=== PATIENT | male | born 1965 | race Caucasian/White ===

== ENCOUNTER 2016-05-23 23:32 | Inpatient (IN) | payer SELFPAY ==
[~2016-05-23] VITALS: Ht 177.8 cm; Wt 79.6 kg
[2016-05-23 23:25] VITALS: O2SAT 99
[~2016-05-23 23:32] MED LIST: ALBU6.7H INH; HYDR12.56 PO; KCL10C PO; LISI-363 PO
[2016-05-23] MEDS ORDERED: SODIUM CHLOR 0.9% 1000 ML INJ 1,000 ML IV SCH (23:34)
[2016-05-23 23:35] VITALS: BP 176/86; PULSE 59; RESP 14; TEMP 98.6; O2SAT 98
[2016-05-23] MEDS ORDERED: SODIUM CHLORIDE 0.9% FLUSH 5 ML FLUSH IVF PRN (23:45)
[2016-05-23] MEDS ORDERED: PROPOFOL 1000 MG/100 ML INJ 100 ML IV SCH (23:45)
[2016-05-23 23:57] VITALS: BP 178/84; PULSE 70; RESP 14; O2SAT 100
[2016-05-24] VITALS (31 sets, daily range): BP systolic 113–229; BP diastolic 56–105; PULSE 56–115; RESP 14–28; TEMP 96.2–106.8; O2SAT 94–100
[2016-05-24 00:03] LABS: BLOOD, URINE SMALL (NEG); GLUCOSE,URINE NEG (NEG); HYALINE CAST, URINE 1 /lpf (RARE); KETONE, URINE NEG (NEG); NITRITE,URINE NEG (NEG); PH, URINE 5.5 (5.0-8.5); SQUAMOUS EPITHELIAL CELL URINE <1 /hpf (0-5); URINE COLOR YELLOW (YELLW/STRAW)
[2016-05-24 00:04] LABS: COMMENT (UR) CATH-CULT NOT IND; CULTURE IF INDICATED CATH CULTURE NOT IND
[2016-05-24 00:07] LABS: AUTOMATED NEUTROPHIL # 5.4 TH/MM3 (1.8-7.7); BASOPHIL # 0.1 TH/MM3 (0-0.2); BASOPHIL % 0.6 % (0.0-2.0); EOSINOPHIL # 0.3 TH/MM3 (0-0.4); EOSINOPHIL % 3.3 % (0.0-4.0); HEMATOCRIT 40.9 % (39.0-51.0); LYMPH % 37.5 % (9.0-44.0); LYMPHOCYTE # 3.9 TH/MM3 (1.0-4.8); MEAN CELL VOLUME 88.4 FL (80.0-100.0); MEAN CORPUSCULAR HEMOGLOBIN 27.8 PG (27.0-34.0); MEAN CORPUSCULAR HGB CONC 31.5 % (32.0-36.0); NEUT % 52.6 % (16.0-70.0); PLATELET COUNT 216 TH/MM3 (150-450); RED BLOOD COUNT 4.63 MIL/MM3 (4.50-5.90); RED CELL DISTRIBUTION WIDTH 21.8 % (11.6-17.2); WHITE BLOOD COUNT 10.3 TH/MM3 (4.0-11.0)
[2016-05-24 00:08] LABS: AMPHETAMINE, URINE NEG (NEG); BARBITURATES, URINE NEG (NEG); COCAINE, URINE NEG (NEG)
[2016-05-24 00:11] LABS: HEMO FLAGS AUTO DIFF
--- NOTE | 2016-05-24 00:12 | PD ---
HPI Chief Complaint: OD/ Ingestion Time Seen by Provider: 23:34 Travel History International Travel<30 days: No Contact w/Intl Traveler<30days: No Traveled to known affect area: No History of Present Illness HPI 51-year-old male presents by ambulance after being found unresponsive. He was given 0.8 milligrams of Narcan without response so he was intubated by the ambulance team with 4 mg of Ativan and 40 mg of etomidate. He was intubated successfully on the second attempt. He was home babysitting a 2-year-old in no significant additional history is available other than he did have paraphernalia for pot on scene. PFS Past Medical History Medical History: Unable to Obtain Diverticulitis: Yes Hypertension: Yes ?: Unknown Past Surgical History Surgical History: Unable to Obtain Social History Narrative Social History By records Alcohol Use: Yes (2 beer/night) Tobacco Use: Yes Substance Use: Yes (marijuana) Allergies-Medications (Allergen,Severity, Reaction): Coded Allergies: No Known Allergies (Unverified , 05/23/16) Reported Meds & Prescriptions Reported Meds & Active Scripts Active Proventil Hfa (Albuterol Sulfate) 6.7 Gm Aero 2 Puff INH Q4HR NEEDED FOR SHORTNESS OF BREATH KCl 10 Meq Cap (Potassium Chloride) 10 Meq Capcr 10 Meq PO DAILY Hctz (Hydrochlorothiazide) 12.5 Mg Cap 12.5 Mg PO DAILY Lisinopril 20 mg (Lisinopril) 20 Mg Tab 1 Tab PO DAILY Review of Systems ROS Limitations: Clinical Condition Physical Exam Narrative General: Intubated, focused exam performed Skin: Warm and dry Eyes: Pupils pinpoint Neck: No JVD Cardiovascular: Regular rate and rhythm Respiratory:clear to auscultation bilaterally on vent Abdomen: Soft, nondistended Extremities: No edema noted Neuro: Unresponsive Data Data Last Documented VS Vital Signs Date Time Temp Pulse Resp B/P Pulse Ox O2 Delivery O2 Flow Rate FiO2 05/24/16 00:48 63 14 176/86 100 70 05/23/16 23:57 Ventilator 05/23/16 23:35 98.6 Orders Electrocardiogram (05/23/16 23:34) Alcohol (Ethanol) (05/23/16 23:34) Ammonia (05/23/16 23:34) Complete Blood Count With Diff (05/23/16 23:34) Comprehensive Metabolic Panel (05/23/16 23:34) Creatine Kinase (Cpk) (05/23/16 23:34) Drug Screen, Random Urine (05/23/16 23:34) Prothrombin Time / Inr (Pt) (05/23/16 23:34) Act Partial Throm Time (Ptt) (05/23/16 23:34) Salicylates (Aspirin) (05/23/16 23:34) Troponin I (05/23/16 23:34) Tylenol (Acetaminophen) (05/23/16 23:34) Lactic Acid Sepsis Protocol (05/23/16 23:34) Urinalysis - C+S If Indicated (05/23/16 23:34) Arterial Blood Gas (Abg) (05/23/16 23:34) Blood Culture (05/23/16 23:34) Chest, Single Ap (05/23/16 23:34) Ct Brain W/O Iv Contrast(Rout) (05/23/16 23:34) Blood Glucose (05/23/16 23:34) Ecg Monitoring (05/23/16 23:34) Iv Access Insert/Monitor (05/23/16 23:34) Oximetry (05/23/16 23:34) Urinary Catheter Insert/Apply (05/23/16 23:34) Sodium Chloride 0.9% Flush (Ns Flush) (05/23/16 23:45) Sodium Chlor 0.9% 1000 Ml Inj (Ns 1000 M (05/23/16 23:34) Propofol 1000 Mg/100 Ml Inj (Diprivan 10 (05/23/16 23:45) ^ Infusion (05/23/16 23:34) RASS (05/23/16 23:34) Neurological Rass Scale HARSH.Q2H (05/23/16 23:34) B-Type Natriuretic Peptide (05/23/16 23:38) Sodium Bicarbonate 8.4% Inj (Sodium Bica (05/24/16 00:30) Cta Brain W Iv Contrast W 3d (05/24/16 ) Cefepime Inj (Maxipime Inj) (05/24/16 00:38) Azithromycin Inj (Zithromax Inj) (05/24/16 00:38) Consult Neurosurgery (05/24/16 ) Sodium Chlor 0.9% 1000 Ml Inj (Ns 1000 M (05/24/16 00:45) Nicardipine Inj (Cardene Inj) (05/24/16 00:45) Admit Order (Ed Use Only) (05/24/16 00:57) Labs Laboratory Tests Test 05/23/16 23:39 White Blood Count 10.3 TH/MM3 Red Blood Count 4.63 MIL/MM3 Hemoglobin 12.9 GM/DL Hematocrit 40.9 % Mean Corpuscular Volume 88.4 FL Mean Corpuscular Hemoglobin 27.8 PG Mean Corpuscular Hemoglobin 31.5 % Concent Red Cell Distribution Width 21.8 % Platelet Count 216 TH/MM3 Mean Platelet Volume 9.7 FL Neutrophils (%) (Auto) 52.6 % Lymphocytes (%) (Auto) 37.5 % Monocytes (%) (Auto) 6.0 % Eosinophils (%) (Auto) 3.3 % Basophils (%) (Auto) 0.6 % Neutrophils # (Auto) 5.4 TH/MM3 Lymphocytes # (Auto) 3.9 TH/MM3 Monocytes # (Auto) 0.6 TH/MM3 Eosinophils # (Auto) 0.3 TH/MM3 Basophils # (Auto) 0.1 TH/MM3 CBC Comment AUTO DIFF Differential Comment AUTO DIFF CONFIRMED Platelet Estimate NORMAL Platelet Morphology Comment NORMAL Crenated Cell Acanthocytes OCC Keratocytes OCC Prothrombin Time 10.2 SEC Prothromb Time International 0.9 RATIO Ratio Activated Partial 26.1 SEC Thromboplast Time Urine Color YELLOW Urine Turbidity CLEAR Urine pH 5.5 Urine Specific [place] 1.020 Urine Protein 30 mg/dL Urine Glucose (UA) NEG mg/dL Urine Ketones NEG mg/dL Urine Occult Blood SMALL Urine Nitrite NEG Urine Bilirubin NEG Urine Urobilinogen LESS THAN 2.0 MG/DL Urine Leukocyte Esterase NEG Urine RBC 2 /hpf Urine WBC 1 /hpf Urine Squamous Epithelial <1 /hpf Cells Urine Hyaline Casts 1 /lpf Microscopic Urinalysis Comment CATH-CULT NOT IND Sodium Level 142 MEQ/L Potassium Level 4.5 MEQ/L Chloride Level 108 MEQ/L Carbon Dioxide Level 16.2 MEQ/L Anion Gap 18 MEQ/L Blood Urea Nitrogen 28 MG/DL Creatinine 1.73 MG/DL Estimat Glomerular Filtration 42 ML/MIN Rate Random Glucose 243 MG/DL Lactic Acid Level 10.5 mmol/L Calcium Level 8.4 MG/DL Total Bilirubin 0.2 MG/DL Aspartate Amino Transf 33 U/L (AST/SGOT) Alanine Aminotransferase 27 U/L (ALT/SGPT) Alkaline Phosphatase 111 U/L Ammonia 102 MCMOL/L Total Creatine Kinase 102 U/L Troponin I 0.08 NG/ML B-Type Natriuretic Peptide 487 PG/ML Total Protein 7.3 GM/DL Albumin 3.4 GM/DL Salicylates Level 3.9 MG/DL Urine Opiates Screen NEG Acetaminophen Level LESS THAN 2.0 MCG/ML Urine Barbiturates Screen NEG Urine Amphetamines Screen NEG Urine Benzodiazepines Screen NEG Urine Cocaine Screen NEG Urine Cannabinoids Screen POS Ethyl Alcohol Level LESS THAN 3 MG/DL MDM Medical Decision Making Medical Screen Exam Complete: Yes Emergency Medical Condition: Yes Medical Record Reviewed: Yes (prior visit noted and past history reviewed) Interpretation(s) EKG is sinus bradycardia at 50 with peak T waves V3 through V5 without STEMI criteria CBC & BMP Diagram 05/23/16 23:39 CT head discussed with radiologist large intraparenchymal bleed within brain stem of ruiz Differential Diagnosis Overdose, intracranial, sepsis, cardiac, renal failure, electrolyte abnormality Narrative Course Will check blood work, imaging and place on propofol for sedation and reevaluate ED workup shows large intracranial bleed, Cardene drip started for blood pressure control. Patient discuss with neurosurgery and will be admitted. There is no family at bedside to update and patient remains in critical condition. Critical Care Narrative Aggregate critical care time was 45 minutes. Time to perform other separately billable procedures was not included in the critical care time. My time did not include minutes spent treating any other patients simultaneously or on activities that did not directly contribute to the patient's treatment. The services I provided to this patient were to treat and/or prevent clinically significant deterioration that could result in: respiratory failure, I provided critical care services requiring my management, as noted below: Chart data review, documentation time, medication orders and management, vital sign assessments/reviewing monitor data, ordering and reviewing lab tests, ordering and interpreting/reviewing x-rays and diagnostic studies, care of the patient and discussion of the patient with the admitting physicians. Physician Communication Physician Communication Dr. Potter states not surgical dr sneed agrees to admission Diagnosis Primary Impression: Intraparenchymal hematoma of brain Qualified Code: S06.369A - Intraparenchymal hematoma of brain, unspecified laterality, with loss of consciousness of unspecified duration, initial encounter Additional Impressions: Hypertensive emergency Respiratory failure Admitting Information Admitting Physician Requests: Admit Nena Mayorga MD May 24, 2016 00:12
[2016-05-24 00:23] LABS: ALT (GPT) 27 U/L (12-78); ANION GAP 18 MEQ/L (5-15); AST (GOT) 33 U/L (15-37); BICARBONATE 16.2 MEQ/L (21.0-32.0); BLOOD UREA NITROGEN 28 MG/DL (7-18); CHLORIDE 108 MEQ/L (98-107); GLOMERULAR FILTRATION RATE 42 ML/MIN (>89); SODIUM (NA) 142 MEQ/L (136-145)
[2016-05-24 00:24] LABS: ALKALINE PHOSPHATASE 111 U/L (45-117); CREATINE KINASE 102 U/L (39-308); TOTAL BILIRUBIN ADULT 0.2 MG/DL (0.2-1.0)
[2016-05-24] MEDS ORDERED: SODIUM BICARBONATE 8.4% INJ 50 MEQ/50 ML SYR IV PUSH ONE (00:30)
--- NOTE | 2016-05-24 00:30 | RADRPT ---
EXAM DATE/TIME: 05/23/2016 23:58 [facility] COMPARISON: CHEST SINGLE AP, January 20, 2016, 13:50. INDICATIONS : E-T tube placement on an unresponsive patient. MEDICAL HISTORY : Hypertension. SURGICAL HISTORY : None. ENCOUNTER: Initial ACUITY: 1 day PAIN SCORE: Non-responsive. LOCATION: Bilateral chest FINDINGS: Endotracheal tube tip in good position. Gastric tube traverses the [id number]. There are some pa tchy areas of infiltrate in the central and lower lungs bilaterally. No evidence of consolidation. Both hemidiaphragms are well delineated. The heart size is within normal limits. CONCLUSION: 1. ET tube in good position. 2. Patchy non-consolidative infiltrates in the middle and lower lungs bilaterally. Luis A Glasgow MD on May 24, 2016 at 0:26 Board Certified Radiologist. This report was verified electronically.
[2016-05-24 00:32] LABS: POTASSIUM 4.5 MEQ/L (3.5-5.1)
[2016-05-24 00:33] LABS: ACANTHOCYTES OCC (NORMAL); ACETAMINOPHEN LESS THAN 2.0 MCG/ML (10.0-30.0); KERATOCYTES OCC (NORMAL)
[2016-05-24 00:34] LABS: PLATELET ESTIMATE SMEAR NORMAL (NORMAL); PLATELET MORPHOLOGY NORMAL (NORMAL); SCAN/DIFF AUTO DIFF CONFIRMED
[2016-05-24 00:36] LABS: APTT (PATIENT) 26.1 SEC (24.3-30.1); INTERNATIONAL NORMALIZED RATIO 0.9 RATIO; PROTHROMBIN TIME - PATIENT 10.2 SEC (9.8-11.6)
[2016-05-24] MEDS ORDERED: CEFEPIME INJ 2,000 MG in SODIUM CHLORIDE 0.9% INJ 100 ML IV STA (00:38)
[2016-05-24] MEDS ORDERED: AZITHROMYCIN INJ 500 MG in SODIUM CHLOR 0.9% 250 ML INJ 250 ML IV STA (00:38)
[2016-05-24] MEDS ORDERED: SODIUM CHLOR 0.9% 1000 ML INJ 1,000 ML IV ONE ×2 (00:45→08:30)
--- NOTE | 2016-05-24 00:53 | RADRPT ---
EXAM DATE/TIME: 05/24/2016 00:24 [facility] COMPARISON: No previous studies available for comparison. INDICATIONS : Altered mental status. RADIATION DOSE: 34.99 CTDIvol (mGy) MEDICAL HISTORY : Hypertension. SURGICAL HISTORY : None. ENCOUNTER: Initial ACUITY: 1 day PAIN SCALE: 0/10 LOCATION: cranial TECHNIQUE: Multiple contiguous axial images were obtained of the head. Using automated exposure control and adj ustment of the mA and/or kV according to patient size, radiation dose was kept as low as reasonably a chievable to obtain optimal diagnostic quality images. FINDINGS: CEREBRUM: The ventricles are normal for age. No evidence of midline shift, mass lesion, hemorrhage or acute in farction. No extra-axial fluid collections are seen. POSTERIOR FOSSA: Abnormal. There is prominent hyperdensity involving most of the ruiz and extending into the telencep halon. The hyperdensity measures 3.5cm in maximum width. A few patchy areas of hyperdensity are see n in the cerebral peduncles. The 4th ventricle is not identified and is probably effaced. No eviden ce of subarachnoid hemorrhage. Some CSF is discernible in the supracerebellar cistern. EXTRACRANIAL: The visualized portion of the orbits is intact. Opacification of the ethmoid sinuses. The patient i s intubated. SKULL: The calvaria is intact. No evidence of skull fracture. CONCLUSION: Abnormal scan demonstrating intra-axial hyperdensity in the brainstem (ruiz and mesencephalon) charac teristic of hematoma with acute blood products. No evidence of subarachnoid hemorrhage. The suprate ntorial brain is intact. The case has been discussed with Dr. Mayorga. Luis A Glasgow MD on May 24, 2016 at 0:43 Board Certified Radiologist. This report was verified electronically.
--- NOTE | 2016-05-24 00:56 | HHI.HP ---
HPI Service Critical Care Medicine Primary Care Physician No Primary Care Physician Admission Diagnosis Diagnosis: Travel History International Travel<30 Days: No Contact w/Intl Traveler <30 Da: No Traveled to Known Affected Are: No History of Present Illness 51 yo WM with PMH of poorly controlled HTN, CKD stage III, reactive airway disease, tobacco abuse who presents to [facility] via [facility] after he was found unresponsive in his bedroom. He and his 2 year old son were in a room with the door locked and the 2 year old began crying and there was no response from patient, so the patient's roommate called the landlord to unlock the door. Upon entry, the roommate found him face down, unresponsive, with gurgling respirations. When [facility] arrived he was intubated at the scene following administration of Ativan 4 mg IV and etomidate 40 mg IV. His pupils were pinpoint and he had marijuana and associated paraphernalia in the room so overdose with contemplated and he was given Narcan 0.8 mg IV without response. Workup in the ED demonstrated large 3.5 cm hemorrhage of ruiz and midbrain with effacement of the 4th ventricle. Neurosurgery was consulted, Dr. Potter, who indicated that this was a devastating hemorrhage with poor prognosis, not amenable to intervention. He is hypertensive with BP 176/86 and has been started on cardene. Coags are normal. Likely represents hypertensive bleed as patient previously had blood pressure 230/143 during a prior ED visit in January 2016. He was supposed to be on HCTZ and lisinopril. Review of Systems ROS Limitations: Clinical Condition, Intubated, Altered Mental Status Past Family Social History Allergies: Coded Allergies: No Known Allergies (Unverified , 05/23/16) Past Medical History Hypertension CKD stage III Reactive airway disease Tobacco abuse Marijuana abuse ? Irritable bowel syndrome Past Surgical History Unable to obtain from patient due to clinical condition EMR indicates no prior surgical history reported at last ED visit January 2016 Reported Medications Lisinopril 20 mg by mouth daily HCTZ 12.5 mg by mouth daily Albuterol as needed Potassium chloride 10 mEq by mouth daily Family History Unable to obtain secondary to patient's clinical condition. Social History He smokes cigarettes. Is unknown to his roommate how much or for how long he has smoked. Drinks one to 2 beers per night He uses marijuana. Urine drug screen was positive for marijuana only. 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 He has a 2 year old son named Kimo for whom he shares custody with the boy's mother. The boy's mother was contacted and she came and got him according to the patient's roommate Roommate states that he is unsure of how to contact patient's family. He believes the patient's parents are . He is not . Apparently he has some brothers and sisters which he feels may be in [place]. Roommate states he will contact patients landlord again in the morning to see if he has any other contact information for the patient's family. Patient's roommate says he goes by the name "Apolinar" Physical Exam Vital Signs Vital Signs Date Time Temp Pulse Resp B/P Pulse Ox O2 Delivery O2 Flow Rate FiO2 05/24/16 00:48 63 14 176/86 100 70 05/23/16 23:58 70 05/23/16 23:57 70 14 178/84 100 70 05/23/16 23:57 14 100 Ventilator 05/23/16 23:42 60 13 100 Ventilator 70 05/23/16 23:35 98.6 59 14 176/86 98 Physical Exam Pulse 53-83, sinus on the monitor blood pressure 180/84 sats 100% on ACV tidal volume 600/rate 14/P5/FiO2 70% GENERAL: Well-nourished, well-developed male who smells like cigarette smoke. He is orotracheally intubated. SKIN: Warm and dry. HEAD: . Normocephalic. EYES: Pupils are pinpoint and sluggishly reactive bilaterally. No icterus. ENT: No nasal bleeding or discharge. Mucous membranes pink and moist. NECK: Trachea midline. +JVD CARDIOVASCULAR: Regular rate and rhythm, sinus rhythm on the monitor. No murmurs rubs or gallops. RESPIRATORY: Diminished breath sounds right base with some rhonchi on the right. No wheezes or rales. GASTROINTESTINAL: Abdomen soft, non-tender, nondistended. Bowel sounds present : Archuleta in place with light yellow urine output. MUSCULOSKELETAL: Extremities without clubbing, cyanosis, or edema. No obvious deformities. NEUROLOGICAL: Pupils as per above. No eye deviation. Corneal reflexes absent.. He is overbreathing the vent. +cough reflex. Appears to be shivering vigorously. Extensor posturing bilateral upper extremities to deep noxious stimuli. No response with bilateral lower extremities. No response to Babinski. Laboratory Laboratory Tests Test 05/23/16 23:39 White Blood Count 10.3 Red Blood Count 4.63 Hemoglobin 12.9 Hematocrit 40.9 Mean Corpuscular Volume 88.4 Mean Corpuscular Hemoglobin 27.8 Mean Corpuscular Hemoglobin 31.5 Concent Red Cell Distribution Width 21.8 Platelet Count 216 Mean Platelet Volume 9.7 Neutrophils (%) (Auto) 52.6 Lymphocytes (%) (Auto) 37.5 Monocytes (%) (Auto) 6.0 Eosinophils (%) (Auto) 3.3 Basophils (%) (Auto) 0.6 Neutrophils # (Auto) 5.4 Lymphocytes # (Auto) 3.9 Monocytes # (Auto) 0.6 Eosinophils # (Auto) 0.3 Basophils # (Auto) 0.1 CBC Comment AUTO DIFF Differential Comment AUTO DIFF CONFIRMED Platelet Estimate NORMAL Platelet Morphology Comment NORMAL Crenated Cell Acanthocytes OCC Keratocytes OCC Prothrombin Time 10.2 Prothromb Time International 0.9 Ratio Activated Partial 26.1 Thromboplast Time Urine Color YELLOW Urine Turbidity CLEAR Urine pH 5.5 Urine Specific [place] 1.020 Urine Protein 30 Urine Glucose (UA) NEG Urine Ketones NEG Urine Occult Blood SMALL Urine Nitrite NEG Urine Bilirubin NEG Urine Urobilinogen LESS THAN 2.0 Urine Leukocyte Esterase NEG Urine RBC 2 Urine WBC 1 Urine Squamous Epithelial <1 Cells Urine Hyaline Casts 1 Microscopic Urinalysis Comment CATH-CULT NOT IND Sodium Level 142 Potassium Level 4.5 Chloride Level 108 Carbon Dioxide Level 16.2 Anion Gap 18 Blood Urea Nitrogen 28 Creatinine 1.73 Estimat Glomerular Filtration 42 Rate Random Glucose 243 Lactic Acid Level 10.5 Calcium Level 8.4 Total Bilirubin 0.2 Aspartate Amino Transf 33 (AST/SGOT) Alanine Aminotransferase 27 (ALT/SGPT) Alkaline Phosphatase 111 Ammonia 102 Total Creatine Kinase 102 Troponin I 0.08 B-Type Natriuretic Peptide 487 Total Protein 7.3 Albumin 3.4 Salicylates Level 3.9 Urine Opiates Screen NEG Acetaminophen Level LESS THAN 2.0 Urine Barbiturates Screen NEG Urine Amphetamines Screen NEG Urine Benzodiazepines Screen NEG Urine Cocaine Screen NEG Urine Cannabinoids Screen POS Ethyl Alcohol Level LESS THAN 3 Date/Time Procedure Status Source Growth 05/23/16 23:45 Aerobic Blood Culture Received Blood Peripheral Pending 05/23/16 23:45 Anaerobic Blood Culture Received Blood Peripheral Pending Result Diagram: 05/23/16233805/23/162338 Assessment and Plan Problem List: (1) Nontraumatic brainstem hemorrhage ICD Code: I61.3 Status: Acute (2) Acute respiratory failure with hypoxia and hypercarbia ICD Code: J96.01 Status: Acute (3) Poorly controlled blood pressure ICD Code: I99.8 Status: Chronic (4) Lactic acidemia ICD Code: E87.2 Status: Acute (5) CKD (chronic kidney disease) stage 3, GFR 30-59 ml/min ICD Code: N18.3 Status: Chronic (6) Tobacco abuse ICD Code: Z72.0 Status: Chronic (7) Aspiration pneumonia ICD Code: J69.0 Status: Acute (8) Marijuana abuse ICD Code: F12.10 Status: Chronic (9) Hyperglycemia ICD Code: R73.9 Status: Acute (10) Malignant hypertension ICD Code: I10 Status: Acute (11) Reactive airway disease ICD Code: J45.909 Status: Chronic Assessment and Plan NEURO: Acute brainstem hemorrhage (midbrain and ruiz) Secondary to malignant HTN CTA obtained shows no evidence of vascular abnormality or mass. Sodium is 142. Maintain normal sodium. Keppra 500 mg IV q12 hours for seizure prophylaxis Given fosphenytoin load 1 gram in ED because unable to r/o seizure. Will obtain portable EEG in am. Suspect this is shivering though, may be mounting a fever due to hemorrhage versus due to aspiration. Acetaminophen/cooling blanket as needed for temp >100.4 Obtain ABG and correlate with End tidal CO2 in effort to maintain PaCO2 35-40 Cardene titrate to maintain systolic blood pressure 130 to 160 Coags are normal Neurosurgery consult RESP: Acute respiratory failure Reactive airway disease Aspiration pneumonia Tobacco abuse Marijuana abuse Ventilator bundle. DuoNeb every 6 hours. Albuterol every 2 hours when necessary. On ACV TV 600 R 14 PEEP 5 FiO2 70% in view of hypercapnia overlying metabolic acidemia and probable COPD, however will adjust to low tidal volume ventilation when appropriate. CXR1/7satisfactory endotracheal tube position. Right middle and right lower lobe infiltrate. Antibiotics as per below. Not appropriate for spontaneous breathing trial due to neurologic condition. CV: Malignant hypertension Lactic acidemia Lactic acidemia ?secondary to being found down versus ?seizure Nicardipine as per above BNP elevation ? secondary to severe HTN. Will f/u Echo GI: ? Irritable bowel syndrome OGT to LIWS FEN/RENAL: Acute anion gap metabolic acidemia Lactic acidemia Chronic kidney disease stage [address] Monitor intake and output. Monitor electrolytes and replace as indicated. Lactic acidemia cleared CPK 102, will followup ID: Aspiration pneumonia Received Cefepime and azithromycin in the ED. Will continue on unasyn to cover community acquired organisms/anaerobes. Calculated creatinine clearance 48. Send sputum culture. U/a negative for evidence infection. Followup blood culture x2 sets 05/23 HEME: Monitor CBC ENDO: Acute hyperglycemia without known history of diabetes. likely stress reaction Low-dose insulin sliding scale at bedside glucose every 6 hours PROPH: SCDs and teds for DVT prophylaxis. Pharmacologic DVT prophylaxis contraindicated due to intracerebral hemorrhage. Protonix 40 mg IV daily for stress ulcer prophylaxis. ACCESS: Peripheral IV providing adequate access at this time Discussed with patient's roommate, Dr. Mayorga, ED RN. Will consult case management to assist with contacting family. Critical care time 60 minutes exclusive of separately billable procedures. Ileana Naranjo MD May 24, 2016 00:56
[2016-05-24] MEDS: niCARdipine INJ 25 MG in SODIUM CHLOR 0.9% 250 ML INJ 250 ML IV SCH ×2 (00:57→05:34)
[2016-05-24] MEDS ORDERED: FOSPHENYTOIN INJ 1,000 MGPE in SODIUM CHLORIDE 0.9% INJ 50 ML IV SCH (01:30)
[2016-05-24 02:14] LABS: LACTIC ACID GHOST NOT REPORTABLE
--- NOTE | 2016-05-24 02:26 | RADRPT ---
EXAM DATE/TIME: 05/24/2016 01:39 [facility] COMPARISON: No previous studies available for comparison. INDICATIONS : Bleed, possible aneurysm. IV CONTRAST: 50 cc Visipaque (iodixanol) IV RADIATION DOSE: 19.46 CTDIvol (mGy) MEDICAL HISTORY : Hypertension. SURGICAL HISTORY : None. ENCOUNTER: Initial ACUITY: 1 day PAIN SCALE: Non-responsive LOCATION: cranial TECHNIQUE: Volumetric scanning was performed using a multi-row detector CT scanner. The data was post processed with a variety of visualization algorithms including full volume maximum intensity projection, multi -planar sliding thin slab reformation, curved planar reformation, and surface rendering techniques. Using automated exposure control and adjustment of the mA and/or kV according to patient size, radiat ion dose was kept as low as reasonably achievable to obtain optimal diagnostic quality images. FINDINGS: Noncontrast CT demonstrated large hematoma involving the ruiz and mesencephalon. The basilar artery, posterior cerebral artery and superior cerebellar artery is intact. No aneurysms seen in the tele rn ior circulation. No tumor blush seen in the brainstem. The anterior circulation is intact without e vidence of aneurysm. The vessel truncation seen. CONCLUSION: Normal CTA of the [place]. Luis A Glasgow MD on May 24, 2016 at 2:22 Board Certified Radiologist. This report was verified electronically.
[2016-05-24] MEDS ORDERED: RESP: ALBUTEROL 2.5 MG/3 ML NEB (PRN) INH (02:45)
[2016-05-24] MEDS ORDERED: RESP: ALBUTEROL 2.5 MG/IPRATROPIUM 0.5 MG NEB (SCH) ONE (03:02)
[2016-05-24] MEDS: SODIUM CHLOR 0.9% 1000 ML INJ 1,000 ML IV SCH ×3 (03:30→23:23)
[2016-05-24] MEDS ORDERED: ACETAMINOPHEN 650 MG/20.3 ML UDC TUBE PRN (03:30)
[2016-05-24] MEDS ORDERED: IODIXANOL 320 MG/ML 10 ML VIAL (for Rad CT) IV ONE (03:31)
[2016-05-24 03:59] LABS: BLOOD GAS BASE EXCESS -8.8 mmol/L (-2-2); BLOOD GAS CARBOXYHEMOGLOBIN 4.5 % (0-4); BLOOD GAS HCO3 19 mmol/L (22-26); BLOOD GAS METHEMOGLOBIN 1.9 % (0-2); BLOOD GAS O2 HGB SATURATION 93 % (90-100); BLOOD GAS OXYGEN CONTENT 16.5 Vol % (12.0-20.0); BLOOD GAS PCO2 57 mmHg (38-42); BLOOD GAS PO2 193 mmHG (61-120); BLOOD GAS TOTAL HGB 12.4 G/DL (12.0-16.0); TEMP CORR TO 98.6
[2016-05-24 04:00] LABS: CRITICAL VALUE YES; DRAW SITE RT FEMORAL; FIO2 70 %; NUMBER OF ARTERIAL PUNCTURES 1; OXYGEN DEVICE VENTILATOR; STAT YES; VENT SETTINGS AC14/600 5PEEP
[2016-05-24] MEDS ORDERED: RESP: ALBUTEROL 2.5 MG/IPRATROPIUM 0.5 MG NEB (SCH) NEB (04:00)
[2016-05-24] MEDS ORDERED: CHLORHEXIDINE GLUCONATE 2 % 1 PACK (2 CLOTHS) TOP PRN (04:45)
[2016-05-24] MEDS ORDERED: MISCELLANEOUS NURSING INFORMATION XX SCH (04:45)
[2016-05-24] MEDS ORDERED: ONDANSETRON HCL 4 MG/2 ML VIAL IV PRN (04:45)
[2016-05-24] MEDS: RESP: ALBUTEROL 2.5 MG/IPRATROPIUM 0.5 MG NEB (SCH) NEB ×4 (04:45→21:11)
[2016-05-24] MEDS ORDERED: DEXTROSE 50% IN WATER 50 ML VIAL(D50) IV PUSH PRN (04:45)
[2016-05-24] MEDS ORDERED: RESP: ALBUTEROL 2.5 MG/3 ML NEB (PRN) NEB (04:45)
[2016-05-24] MEDS ORDERED: LORazepam 2 MG/ML VIAL IV PRN (04:45)
[2016-05-24] MEDS ORDERED: SODIUM CHLORIDE 0.9% FLUSH 5 ML FLUSH IV FLUSH PRN (04:45)
[2016-05-24] MEDS ORDERED: GLUCAGON 1 MG/ML VIAL OTHER PRN (04:45)
[2016-05-24 04:51] LABS: BLOOD GAS BASE EXCESS 2.1 mmol/L (-2-2); BLOOD GAS CARBOXYHEMOGLOBIN 2.1 % (0-4); BLOOD GAS HCO3 28 mmol/L (22-26); BLOOD GAS METHEMOGLOBIN 2.1 % (0-2); BLOOD GAS O2 HGB SATURATION 89 % (90-100); BLOOD GAS OXYGEN CONTENT 17.1 Vol % (12.0-20.0); BLOOD GAS PCO2 77 mmHg (38-42); BLOOD GAS PO2 90 mmHG (61-120); BLOOD GAS TOTAL HGB 13.6 G/DL (12.0-16.0)
[2016-05-24 04:52] LABS: CRITICAL VALUE YES; OXYGEN DEVICE VENTILATOR
[2016-05-24 04:53] LABS: DRAW SITE RT FEMORAL; FIO2 70 %; NUMBER OF ARTERIAL PUNCTURES 1; STAT YES; VENT SETTINGS AC14/600 5 PEEP
[2016-05-24] MEDS ORDERED: ACETAMINOPHEN SUSP 160 MG/5 ML UDC ONE (04:53)
[2016-05-24] MEDS: INSULIN ASPART SUPPLEMENTAL SCALE SQ SCH ×4 (05:00→23:00)
[2016-05-24] MEDS ORDERED: DOPamine INJ PREMIX 500 ML IV ONE (05:00)
[2016-05-24] MEDS ORDERED: ACETAMINOPHEN 1000 MG/100 ML VIAL IV ONE (05:00)
[2016-05-24] MEDS ORDERED: LORazepam 2 MG/ML VIAL IV PUSH ONE (05:00)
[2016-05-24] MEDS: levETIRAcetam 500 MG/NS 100 ML IV SCH ×4 (05:17→14:57)
--- NOTE | 2016-05-24 05:29 | PD.CONS ---
History of Present Illness Service Neurosurgery Consult Requested By Dr. Mayorga Emergency room Reason for Consult [facility] Primary Care Physician No Primary Care Physician Diagnoses: History of Present Illness 51 y.o. male found unresponsive at home, unresponsive. No seizure reported. Intubated prior to arrival. Reported marijuana use. Review of Systems Other Unable to obtain review of systems from the patient. Apparently has had some recent problems with shortness of breath and lower extremity edema. Past Family Social History Allergies: Coded Allergies: No Known Allergies (Unverified , 05/23/16) Past Medical History Hypertension Reactive airway disease Family states that he has had some cardiac issues, and was supposed to have a pacemaker placed in the past year but did not proceed with that. Past Surgical History No major surgeries reported Reported Medications Reported Meds & Active Scripts Active Proventil Hfa (Albuterol Sulfate) 6.7 Gm Aero 2 Puff INH Q4HR NEEDED FOR SHORTNESS OF BREATH KCl 10 Meq Cap (Potassium Chloride) 10 Meq Capcr 10 Meq PO DAILY Hydrochlorothiazide (Miscellaneous Medication) 12.5 Mg Cap 12.5 Mg PO DAILY Lisinopril 20 mg (Lisinopril) 20 Mg Tab 1 Tab PO DAILY Family History The patient apparently has a relative that also had a intracranial hemorrhage. Social History Smoke cigarettes Takes alcohol occasionally Occasional marijuana use Physical Exam Vital Signs Vital Signs Date Time Temp Pulse Resp B/P Pulse Ox O2 Delivery O2 Flow Rate FiO2 05/24/16 04:49 105.7 05/24/16 03:50 103 14 176/83 100 60 05/24/16 03:07 94 14 185/69 100 70 05/24/16 02:12 80 14 169/77 100 70 05/24/16 01:42 90 14 195/91 100 70 05/24/16 01:30 100 100 05/24/16 01:20 98 14 229/105 99 70 05/24/16 00:48 63 14 176/86 100 70 05/24/16 00:15 100 100 05/23/16 23:58 70 05/23/16 23:57 70 14 178/84 100 70 05/23/16 23:57 14 100 Ventilator 05/23/16 23:42 60 13 100 Ventilator 70 05/23/16 23:35 98.6 59 14 176/86 98 05/23/16 23:25 99 70 05/23/16 23:25 99 70 Physical Exam GENERAL: This is a well-nourished, well-developed patient, intubated and sedated SKIN: No rashes, ecchymoses or lesions. Cool and dry. HEAD: Atraumatic. Normocephalic. EYES: Sclerae clear and nonicteric ENT: No facial fracture or deformity NECK: Trachea midline. No JVD or lymphadenopathy. Supple. CARDIOVASCULAR: Regular rate and rhythm without murmurs, gallops, or rubs. RESPIRATORY: Clear to auscultation. Breath sounds equal bilaterally. No wheezes , rales, or rhonchi. GASTROINTESTINAL: Abdomen soft, non-tender, nondistended. MUSCULOSKELETAL: No long bone or joint deformity NEUROLOGICAL: Intubated and sedated Pupils 2 mm nonreactive Absent corneal and oculocephalic response Minimal cough response was suctioning Absent movement lower extremities to pain Hoffmans absent bilateral Plantar absent bilateral No clonus Laboratory Laboratory Tests Test 05/23/16 05/24/16 05/24/16 05/24/16 23:39 00:05 03:15 04:40 White Blood Count 10.3 Red Blood Count 4.63 Hemoglobin 12.9 Hematocrit 40.9 Mean Corpuscular Volume 88.4 Mean Corpuscular Hemoglobin 27.8 Mean Corpuscular Hemoglobin 31.5 Concent Red Cell Distribution Width 21.8 Platelet Count 216 Mean Platelet Volume 9.7 Neutrophils (%) (Auto) 52.6 Lymphocytes (%) (Auto) 37.5 Monocytes (%) (Auto) 6.0 Eosinophils (%) (Auto) 3.3 Basophils (%) (Auto) 0.6 Neutrophils # (Auto) 5.4 Lymphocytes # (Auto) 3.9 Monocytes # (Auto) 0.6 Eosinophils # (Auto) 0.3 Basophils # (Auto) 0.1 CBC Comment AUTO DIFF Differential Comment AUTO DIFF CONFIRMED Platelet Estimate NORMAL Platelet Morphology Comment NORMAL Crenated Cell Acanthocytes OCC Keratocytes OCC Prothrombin Time 10.2 Prothromb Time International 0.9 Ratio Activated Partial 26.1 Thromboplast Time Urine Color YELLOW Urine Turbidity CLEAR Urine pH 5.5 Urine Specific [place] 1.020 Urine Protein 30 Urine Glucose (UA) NEG Urine Ketones NEG Urine Occult Blood SMALL Urine Nitrite NEG Urine Bilirubin NEG Urine Urobilinogen LESS THAN 2.0 Urine Leukocyte Esterase NEG Urine RBC 2 Urine WBC 1 Urine Squamous Epithelial <1 Cells Urine Hyaline Casts 1 Microscopic Urinalysis Comment CATH-CULT NOT IND Sodium Level 142 Potassium Level 4.5 Chloride Level 108 Carbon Dioxide Level 16.2 Anion Gap 18 Blood Urea Nitrogen 28 Creatinine 1.73 Estimat Glomerular Filtration 42 Rate Random Glucose 243 Lactic Acid Level 10.5 0.7 Calcium Level 8.4 Total Bilirubin 0.2 Aspartate Amino Transf 33 (AST/SGOT) Alanine Aminotransferase 27 (ALT/SGPT) Alkaline Phosphatase 111 Ammonia 102 Total Creatine Kinase 102 Troponin I 0.08 B-Type Natriuretic Peptide 487 Total Protein 7.3 Albumin 3.4 Salicylates Level 3.9 Urine Opiates Screen NEG Acetaminophen Level LESS THAN 2.0 Urine Barbiturates Screen NEG Urine Amphetamines Screen NEG Urine Benzodiazepines Screen NEG Urine Cocaine Screen NEG Urine Cannabinoids Screen POS Ethyl Alcohol Level LESS THAN 3 Blood Gas Puncture Site RT FEMORAL RT FEMORAL Blood Gas Patient Temperature 98.6 105.0 Blood Gas HCO3 19 28 Blood Gas Base Excess -8.8 2.1 Blood Gas Oxygen Saturation 93 89 Arterial Blood pH 7.15 7.22 Arterial Blood Partial 57 77 Pressure CO2 Arterial Blood Partial 193 90 Pressure O2 Arterial Blood Oxygen Content 16.5 17.1 Arterial Blood 4.5 2.1 Carboxyhemoglobin Arterial Blood Methemoglobin 1.9 2.1 Blood Gas Hemoglobin 12.4 13.6 Oxygen Delivery Device VENTILATOR VENTILATOR Blood Gas Ventilator Setting AC14/600 5PEEP AC14/600 5 PEEP Blood Gas Inspired Oxygen 70 70 Date/Time Procedure Status Source Growth 05/23/16 23:45 Aerobic Blood Culture Received Blood Peripheral Pending 05/23/16 23:45 Anaerobic Blood Culture Received Blood Peripheral Pending Result Diagram: 05/23/16 2339 05/23/16 [address] head 2 as well as CTA images have all been reviewed by the undersigned. Agree with findings as noted below: Mild ventriculomegaly on follow-up CT Chest X-Ray 05/24/16 0638 Signed Impressions: Service Date/Time: Tuesday, May 24, 2016 06:50 - CONCLUSION: Left IJ catheter in good position. No evidence of pneumothorax. Luis A Glasgow MD Renal Ultrasound 05/24/16 0000 Signed Impressions: Service Date/Time: Tuesday, May 24, 2016 09:29 - CONCLUSION: Negative for mass or hydronephrosis. Diaz Quigley MD FACR Head CTA 05/24/16 0000 Signed Impressions: Service Date/Time: Tuesday, May 24, 2016 01:39 - CONCLUSION: Normal CTA of the [place]. Luis A Glasgow MD Head CT 05/24/16 0000 Signed Impressions: Service Date/Time: Tuesday, May 24, 2016 07:55 - CONCLUSION: Evolving large brainstem hemorrhage. Ventricular size is increasing. Diaz Quigley MD FACR Assessment and Plan Assessment and Plan Impresion: 1. Large brainstem - pontine ICH 2. HTN 3. Possible substance abuse Plan: Discussed with patient's sister on the telephone. Family will be coming to the hospital, driving from [place] Admit ISC Continue ventilator support No indication for surgical intervention at this time. No ventriculostomy at present - no hydrocephalus on initial MRI. F/U CT Head later today with CTA versus MRA Maintain sbp 120 to 150 range Maintain Sodium 145 - 155 range Non chemical DVT prophylaxis Ulcer prophylaxis Chavo Potter MD May 24, 2016 05:29
[2016-05-24] MEDS: AMPICILLIN-SULBACTAM INJ 3 GM in SODIUM CHLORIDE 0.9% INJ 100 ML IV SCH ×3 (06:00→18:00)
[2016-05-24 06:15] LABS: BLOOD, URINE NEG (NEG); GLUCOSE,URINE NEG (NEG); KETONE, URINE NEG (NEG); MUCUS URINE FEW /lpf (OCC); NITRITE,URINE NEG (NEG); URINE COLOR LIGHT-YELLOW (YELLW/STRAW)
[2016-05-24 06:16] LABS: COMMENT (UR) CATH-CULT NOT IND; CULTURE IF INDICATED CATH CULTURE NOT IND
[2016-05-24] MEDS ORDERED: SODIUM CHLORIDE 0.9% FLUSH 5 ML FLUSH IVF PRN (06:45)
[2016-05-24] MEDS ORDERED: CLEVIDIPINE INJ 50 ML IV SCH (06:45)
--- NOTE | 2016-05-24 06:49 | PD.PROCEDR ---
Central Line Procedure REASON FOR PROCEDURE Central venous access PROCEDURE PERFORMED Central line placement: Left IJ CVL CONSENT Informed consent for procedure was not obtained and concern emergent due to multiple medication/hemodynamic instability. The risks and benefits of the procedure were discussed to include but limited to bleeding, clot formation, infection, and even . ANESTHESIA Local injection of 1% Lidocaine DESCRIPTION OF THE PROCEDURE The patient was placed in supine, mild Trendelenburg position. The area was exposed and cleansed with ChloraPrep, times two. Large sterile drape was used to cover the patient, with the site exposed, under sterile conditions including cap, face mask, sterile gown, and sterile gloves. On single attempt, the introducer needle was inserted with negative pressure in syringe and venous flash was obtained. The guide wire was then advanced without any restriction and the needle was removed. The dilator was used without any complications. Using Seldinger technique the triple-lumen catheter was advanced over the guide wire to a depth of 19 centimeters. The guide wire was removed. All ports were aspirated with dark venous blood return and flushed easily with sterile saline. All ports were capped. Antibiotic disc was placed around central line at puncture site. The central line was secured to the skin with two interrupted 2.0 silk sutures. The area was bandaged with sterile see-through central line bandage. RADIOLOGICAL DATA Ultrasound guidance was used to locate left internal jugular vein. Doppler/ color flow was used to confirm venous flow. COMPLICATIONS: No apparent complications ESTIMATED BLOOD LOSS: Less than 1 cc. Sudhakar Huynh MD May 24, 2016 06:49
[2016-05-24] MEDS ORDERED: 3% SALINE INJ 500 ML IV SCH (07:00)
[2016-05-24 07:02] LABS: BLOOD GAS CARBOXYHEMOGLOBIN 0.9 % (0-4); BLOOD GAS HCO3 28 mmol/L (22-26); BLOOD GAS METHEMOGLOBIN 0.7 % (0-2); BLOOD GAS O2 HGB SATURATION 98 % (90-100); BLOOD GAS OXYGEN CONTENT 17.9 Vol % (12.0-20.0); BLOOD GAS PCO2 58 mmHg (38-42); BLOOD GAS PO2 171 mmHg (61-120); BLOOD GAS TOTAL HGB 12.8 G/DL (12.0-16.0); TEMP CORR TO 98.6
[2016-05-24 07:03] LABS: CRITICAL VALUE YES; OXYGEN DEVICE VENT
[2016-05-24 07:04] LABS: DRAW SITE RT RADIAL; FIO2 70 %; NUMBER OF ARTERIAL PUNCTURES 1; STAT NO; ULNAR PULSE PRESENT
--- NOTE | 2016-05-24 07:07 | RADRPT ---
EXAM DATE/TIME: 05/24/2016 06:50 [facility] COMPARISON: CHEST SINGLE AP, May 23, 2016, 23:58. INDICATIONS : Evaluate central line placement MEDICAL HISTORY : Hypertension. SURGICAL HISTORY : None. ENCOUNTER: Subsequent ACUITY: 1 day PAIN SCORE: Non-responsive. LOCATION: Bilateral chest FINDINGS: Endotracheal tube well above the sintia. Gastric tube traverses the [id number]. Left internal ju gular catheter has been placed and the tip is projected over the mid superior vena cava. No evidence of pneumothorax. Non-consolidative infiltrates in the left central and lower lungs stable from prio r. Both hemidiaphragms are well delineated. CONCLUSION: Left IJ catheter in good position. No evidence of pneumothorax. Luis A Glasgow MD on May 24, 2016 at 7:05 Board Certified Radiologist. This report was verified electronically.
[2016-05-24] MEDS ORDERED: TERBUTALINE INJ 1 MG/ML AMP SQ PRN ×2 (07:15→08:45)
--- NOTE | 2016-05-24 07:21 | HHI.CCPN ---
Subjective Remarks/Hospital Course 51 yo WM with PMH of poorly controlled HTN, CKD stage III, reactive airway disease, tobacco abuse who [place] [facility] [place] [facility] after he was found unresponsive in his bedroom. He and his 2 year old son were in a room with the door locked and the 2 year old began crying and there was no response from patient, so the patient's roommate called the landlord to unlock the door. Upon entry, the roommate found him face down, unresponsive, with gurgling respirations. When [facility] arrived he was intubated at the scene following administration of Ativan 4 mg IV and etomidate 40 mg IV. His pupils were pinpoint and he had marijuana and associated paraphernalia in the room so overdose with contemplated and he was given Narcan 0.8 mg IV without response. Workup in the ED demonstrated large 3.5 cm hemorrhage of ruiz and midbrain with effacement of the 4th ventricle. Neurosurgery was consulted, Dr. Potter, who indicated that this was a devastating hemorrhage with poor prognosis, not amenable to intervention. He is hypertensive with BP 176/86 and has been started on cardene. Coags are normal. Likely represents hypertensive bleed as patient previously had blood pressure 230/143 during a prior ED visit in January 2016. He was supposed to be on HCTZ and lisinopril. Subjective 05/24: CURRENT TEMPERATURE 105.7. 600 cc urine past hour. Awaiting urine and serum studies. Pupils are slowly reactive now about 3 mm bilaterally. Objective Vital Signs Date Time Temp Pulse Resp B/P Pulse Ox O2 Delivery O2 Flow Rate FiO2 05/24/16 05:48 98 100 05/24/16 05:38 115 14 147/68 05/24/16 05:00 106.8 05/23/16 23:57 Ventilator Result Diagram: 05/23/16 2339 05/23/16 2339 Other Results Microbiology Date/Time Procedure Status Source Growth 05/23/16 23:45 Aerobic Blood Culture Received Blood Peripheral Pending 05/23/16 23:45 Anaerobic Blood Culture Received Blood Peripheral Pending Imaging Last Impressions Chest X-Ray 05/24/16 0638 Signed Impressions: Service Date/Time: Tuesday, May 24, 2016 06:50 - CONCLUSION: Left IJ catheter in good position. No evidence of pneumothorax. Luis A Glasgow MD Head CTA 05/24/16 0000 Signed Impressions: Service Date/Time: Tuesday, May 24, 2016 01:39 - CONCLUSION: Normal CTA of the [place]. Luis A Glasgow MD Head CT 05/23/16 2334 Signed Impressions: Service Date/Time: Tuesday, May 24, 2016 00:24 - CONCLUSION: Abnormal scan demonstrating intra-axial hyperdensity in the brainstem (ruiz and mesencephalon ) characteristic of hematoma with acute blood products. No evidence of subarachnoid hemorrhage. The supratentorial brain is intact. The case has been discussed with Dr. Mayorga. Luis A Glasgow MD Objective Remarks GENERAL: 51-year-old male, well nourished and well-developed currently orotracheally intubated. SKIN: Warm and dry. No rash HEAD: . Normocephalic. EYES: Pupils are around 2-3 mm bilaterally and reactive. No scleral icterus. ENT: No nasal bleeding or discharge. Mucous membranes pink and moist. NG tube in left nares NECK: Trachea midline. No thyromegaly or lymphadenopathy. CARDIOVASCULAR: RRR. S1, S2. No S4. Without murmur, clicks, gallops or rubs RESPIRATORY: Diminished breath sounds throughout all lung [place]. Few crackles appreciated right greater than left lower lobe GASTROINTESTINAL: Abdomen soft, non-tender, nondistended. Hypoactive bowel sounds : Archuleta in place. No scrotal edema MUSCULOSKELETAL: Extremities without significant peripheral edema. No obvious deformities. NEUROLOGICAL: No gaze deviation. Corneal reflexes are intact. Positive gag. . Extensor DC corticated posturing bilateral upper extremities to deep noxious stimuli. No response with bilateral lower extremities. No response to Babinski upward or downward. Urinary Catheter: Yes Assessment to: Continue Archuleta insert reason: Prolonged Immobilization Vascular Central Line Catheter: Yes Assessment to: Continue Date of Insertion: May 24, 2016 Line: Central Venous Catheter Side: Left Location: Internal, Jugular A/P Problem List: (1) Acute respiratory failure with hypoxia and hypercarbia ICD Code: J96.01 Status: Acute (2) Nontraumatic brainstem hemorrhage ICD Code: I61.3 Status: Acute (3) Poorly controlled blood pressure ICD Code: I99.8 Status: Chronic (4) Lactic acidemia ICD Code: E87.2 Status: Acute (5) CKD (chronic kidney disease) stage 3, GFR 30-59 ml/min ICD Code: N18.3 Status: Chronic (6) Tobacco abuse ICD Code: Z72.0 Status: Chronic (7) Aspiration pneumonia ICD Code: J69.0 Status: Acute (8) Marijuana abuse ICD Code: F12.10 Status: Chronic (9) Hyperglycemia ICD Code: R73.9 Status: Acute (10) Malignant hypertension ICD Code: I10 Status: Acute (11) Reactive airway disease ICD Code: J45.909 Status: Chronic Assessment and Plan NEURO/Psych: Acute brainstem hemorrhage (ruiz and mesencephalon 3.5 cm) likely hypertensive THC abuse Currently on propofol/fentanyl drips for sedation/analgesia while intubated No sedation vacation CT head revealed 3.5 cm hemorrhage brainstem including the ruiz and Mrs. encephalletty. Effacement of the fourth ventricle noted. Some hemorrhage in the cerebral peduncles as well. CTA obtained shows no evidence of vascular abnormality/Intact [place] Keppra 500 mg IV q12 hours for seizure prophylaxis 7 days Given fosphenytoin load 1 gram in ED because unable to r/o seizure. EEG pending Acetaminophen/cooling blanket as needed for temp >100.4 End tidal CO2 in effort to maintain PaCO2 30-35 Per neurosurgery recommendations start 3% hypertonic saline goal sodium 145-154. Utilize Cleviprex for hypertensionsystolic blood pressure greater than 150 and/ or norepinephrine for systolic blood pressure less than 120 and titrate to maintain systolic blood pressure 120-150. Neurosurgery consult/Dr. Potter Repeat head CT now with new neurological findings Smoking cessation booklet left at bedside. Education provided when clinically indicated RESP: Acute respiratory failure - multifactorial secondary to Reactive airway disease Aspiration pneumonia Tobaccoism Patient currently has a 7.[address] [facility] [place]) 24/compatible around 550/inspiratory time 0.85/5/70 Ventilator bundle. DuoNeb every 6 hours. Albuterol every 2 hours when necessary. CXR1/7satisfactory endotracheal tube position. Right middle and right lower lobe infiltrate. Antibiotics as per below. Not appropriate for spontaneous breathing trial due to neurologic condition. CV: Malignant hypertension Lactic acidemia - resolved Lactic acidemia ?secondary to being found down versus ?seizure. Recheck in a.m. Cleviprex/norepinephrine as per above BNP elevation ? secondary to severe HTN. Will f/u Echo Initial troponin negative. EKG shows no acute ST-T findings GI: ? Irritable bowel syndrome Hyper ammonia Patient is on vital 1.5 goal 60 cc an hour Protonix for GI prophylaxis Colace/Senokot twice a day for bowel regimen Started Xifaxan 400 mg every 8/lactulose 30 cc twice a day for ammonia 102. Recheck in a.m. FEN/RENAL: Acute anion gap metabolic acidemia Chronic kidney disease stage III Possible early central DI UA/ SG/osm all pending Archuleta in place. Monitor intake and output. Monitor electrolytes and replace clinically as indicated. ID: Aspiration pneumonia Received Cefepime and azithromycin in the ED. Day #1 unasyn to cover community acquired organisms/anaerobes. Pertinent cultures / - blood cultures 2 - 05/24 - sputum - pending HEME: Monitor CBC ENDO: Acute hyperglycemia without known history of diabetes. likely stress reaction Low-dose insulin sliding scale at bedside glucose every 6 hours Access - Left IJ CVL day #1 Prophylaxis - GI -Protonix - DVT - SCD/pharmacological prophylaxis contraindicated first 24 hours status post intracerebral hemorrhage Critical Care: The total critical care time was 35 minutes. Time to perform other separately billable procedures was not included in the critical care time. Problem Qualifiers (1) Aspiration pneumonia: Qualified Code: J69.0 - Aspiration pneumonia, unspecified aspiration pneumonia type, unspecified laterality, unspecified part of lung (2) Reactive airway disease: Qualified Code: J45.909 - Reactive airway disease, unspecified asthma severity , uncomplicated Sudhakar Huynh MD May 24, 2016 07:21
[2016-05-24 07:27] LABS: AUTOMATED NEUTROPHIL # 9.3 TH/MM3 (1.8-7.7); BASOPHIL % 0.2 % (0.0-2.0); EOSINOPHIL % 0.1 % (0.0-4.0); HEMATOCRIT 39.1 % (39.0-51.0); HEMO FLAGS DIFF FINAL; LYMPH % 6.4 % (9.0-44.0); LYMPHOCYTE # 0.7 TH/MM3 (1.0-4.8); MEAN CELL VOLUME 84.5 FL (80.0-100.0); MEAN CORPUSCULAR HEMOGLOBIN 27.6 PG (27.0-34.0); MEAN CORPUSCULAR HGB CONC 32.7 % (32.0-36.0); MONO % 7.5 % (0.0-8.0); NEUT % 85.8 % (16.0-70.0); PLATELET COUNT 189 TH/MM3 (150-450); RED BLOOD COUNT 4.63 MIL/MM3 (4.50-5.90); RED CELL DISTRIBUTION WIDTH 21.6 % (11.6-17.2); WHITE BLOOD COUNT 10.9 TH/MM3 (4.0-11.0)
[2016-05-24 07:46] LABS: APTT (PATIENT) 26.8 SEC (24.3-30.1)
[2016-05-24 07:53] LABS: BICARBONATE 29.9 MEQ/L (21.0-32.0); MAGNESIUM 1.9 MG/DL (1.5-2.5); POTASSIUM 3.8 MEQ/L (3.5-5.1)
[2016-05-24 07:54] LABS: FREE T4 0.84 NG/DL (0.76-1.46)
[2016-05-24] MEDS: CHLORHEXIDINE 0.12% (ORAL KIT) 15 ML CUP MT SCH ×2 (08:00→20:00)
[2016-05-24] MEDS ORDERED: CHLORHEXIDINE 0.12% (ORAL KIT) 15 ML CUP MT SCH (08:00)
--- NOTE | 2016-05-24 08:11 | RADRPT ---
EXAM DATE/TIME: 05/24/2016 07:55 [facility] COMPARISON: CTA BRAIN W 3D RECON, May 24, 2016, 1:39. CT BRAIN W/O CONTRAST, May 24, 2016, 0:24. INDICATIONS : Loss of reflexes since prior scan done earlier. RADIATION DOSE: 67.69 CTDIvol (mGy) MEDICAL HISTORY : Hypertension. SURGICAL HISTORY : None. ENCOUNTER: Initial ACUITY: 1 day PAIN SCALE: Non-responsive LOCATION: cranial TECHNIQUE: Multiple contiguous axial images were obtained of the head. Using automated exposure control and adj ustment of the mA and/or kV according to patient size, radiation dose was kept as low as reasonably a chievable to obtain optimal diagnostic quality images. FINDINGS: Again seen is the large brainstem hemorrhage involving most of the midbrain, There is compression of the fourth ventricle. Supratentorial ventricles are becoming slightly larger in the interval. No ot her interval change is evident. CONCLUSION: Evolving large brainstem hemorrhage. Ventricular size is increasing. Diaz Quigley MD FACR on May 24, 2016 at 8:07 Board Certified Radiologist. This report was verified electronically.
[2016-05-24 08:15] LABS: CALCIUM-PROTEIN CORRECTED 7.3 MG/DL (8.5-10.1)
[2016-05-24] MEDS: NOREPINEPHRINE-DEXTROSE DRIP 250 ML IV SCH ×2 (08:30→18:24)
[2016-05-24] MEDS: SODIUM CHLORIDE 23.4% INJ 38.5 MEQ in WATER STERILE FOR INJ 1,000 ML IV SCH ×3 (08:30→16:49)
[2016-05-24] MEDS ORDERED: LACTATED RINGER'S 1000 ML INJ 1,000 ML IV ONE (08:30)
[2016-05-24] MEDS ORDERED: DESMOPRESSIN ACETATE 4 MCG/ML VIAL SQ ONE (08:30)
[2016-05-24] MEDS ORDERED: DOPamine INJ 1,600 MG in DEXTROSE 5% IN WATER INJ 240 ML IV SCH ×2 (08:45)
[2016-05-24] MEDS ORDERED: DOPamine INJ PREMIX 500 ML IV SCH (08:45)
[2016-05-24 08:48] LABS: BLOOD GAS BASE EXCESS -1.6 mmol/L (-2-2); BLOOD GAS CARBOXYHEMOGLOBIN 0.8 % (0-4); BLOOD GAS HCO3 23 mmol/L (22-26); BLOOD GAS METHEMOGLOBIN 0.7 % (0-2); BLOOD GAS O2 HGB SATURATION 98 % (90-100); BLOOD GAS OXYGEN CONTENT 17.3 Vol % (12.0-20.0); BLOOD GAS PCO2 44 mmHg (38-42); BLOOD GAS PO2 258 mmHg (61-120); BLOOD GAS TOTAL HGB 12.1 G/DL (12.0-16.0); CRITICAL VALUE NO; TEMP CORR TO 98.6
[2016-05-24 08:49] LABS: DRAW SITE ART LINE; FIO2 70 %; OXYGEN DEVICE VENTILATOR; STAT YES; VENT SETTINGS SEE COMMENTS
[2016-05-24] MEDS: DOCUSATE SODIUM 100 MG/10 ML UDC PO SCH ×2 (09:00→20:44)
[2016-05-24] MEDS: MULTIVITAMIN TAB PO SCH (09:00)
[2016-05-24] MEDS: SENNOSIDES SYRUP 8.8 MG/5 ML CUP TUBE SCH ×2 (09:00→20:44)
[2016-05-24] MEDS: LACTULOSE SYRUP 20 GM/30 ML CUP PO SCH ×2 (09:00→20:44)
[2016-05-24] MEDS: SODIUM CHLORIDE 0.9% FLUSH 5 ML FLUSH IVF SCH (09:00)
[2016-05-24] MEDS: FOLIC ACID 1 MG TAB PO SCH (09:00)
[2016-05-24] MEDS: THIAMINE INJ 100 MG in SODIUM CHLORIDE 0.9% INJ 100 ML IV SCH (09:00)
[2016-05-24] MEDS: RIFAXIMIN 200 MG TAB PO SCH ×3 (09:00→22:00)
[2016-05-24] MEDS: POLYETHYLENE GLYCOL 17 GM PKG PO SCH (09:00)
[2016-05-24] MEDS ORDERED: SODIUM CHLORIDE 0.9% FLUSH 5 ML FLUSH IV FLUSH SCH (09:00)
[2016-05-24] MEDS: PANTOPRAZOLE SODIUM 40 MG VIAL IV SCH (09:00)
--- NOTE | 2016-05-24 10:28 | RADRPT ---
EXAM DATE/TIME: 05/24/2016 09:29 [facility] COMPARISON: No previous studies available for comparison. INDICATIONS : Abnormal labs. MEDICAL HISTORY : Hypertension. Diverticulitis. SURGICAL HISTORY : None. ENCOUNTER: Initial ACUITY: 1 day PAIN SCORE: Nonresponsive. LOCATION: Bilateral flank MEASUREMENTS: RIGHT KIDNEY: 11.2 x 4.1 x 6.0 cm LEFT KIDNEY: 11.4 x 4.9 x 5.1 cm FINDINGS: RIGHT KIDNEY: Renal cortex is normal in thickness and echotexture. No hydronephrosis, stone, or mass. LEFT KIDNEY: Renal cortex is normal in thickness and echotexture. No hydronephrosis, stone, or mass. BLADDER: Within normal limits given the degree of distension. CONCLUSION: Negative for mass or hydronephrosis. Diaz Quigley MD FACR on May 24, 2016 at 10:26 Board Certified Radiologist. This report was verified electronically.
[2016-05-24 11:51] LABS: POTASSIUM 3.6 MEQ/L (3.5-5.1)
[2016-05-24] MEDS: PROPOFOL 1000 MG/100 ML INJ 100 ML IV SCH ×3 (11:54→20:44)
[2016-05-24] MEDS: fentaNYL DRIP 250 ML IV SCH (11:55)
[2016-05-24 13:02] LABS: BLOOD GAS BASE EXCESS 1.2 mmol/L (-2-2); BLOOD GAS CARBOXYHEMOGLOBIN 1.2 % (0-4); BLOOD GAS HCO3 24 mmol/L (22-26); BLOOD GAS METHEMOGLOBIN 0.7 % (0-2); BLOOD GAS O2 HGB SATURATION 98 % (90-100); BLOOD GAS OXYGEN CONTENT 16.1 Vol % (12.0-20.0); BLOOD GAS PCO2 27 mmHg (38-42); BLOOD GAS PO2 133 mmHg (61-120); BLOOD GAS TOTAL HGB 11.6 G/DL (12.0-16.0); CRITICAL VALUE YES; DRAW SITE ART LINE; FIO2 40 %; OXYGEN DEVICE VENTILATOR; STAT NO; TEMP CORR TO 98.6; VENT SETTINGS PRVC/AC
--- NOTE | 2016-05-24 14:35 | MG ---
cc: LUIS PAIGE M.D. Lab No: [id number] Date: 05/24/2016 Age: Sex: M Race: TECHNIQUE This is a 17 channel EEG. DESCRIPTION: The background rhythm reveals the background of slowing in the theta frequency and delta frequency ranging from 3-6 Hz. There is superimposed a faster beta rhythm at about 15 Hz over the slower rhythm. There are no epileptiform features. No lateralizing features identified. INTERPRETATION Study is abnormal consistent with severe encephalopathy. The superimposed beta activity is probably medication effect. MD NEHA Abraham/DENIL /2:07 PM /2:29 PM
--- NOTE | 2016-05-24 15:35 | EKG ---
Date Performed: 05/23/2016 Time Performed: 23:34:00 PTAGE: 51 years EKG: SINUS BRADYCARDIA MODERATE VOLTAGE CRITERIA FOR LVH, CONSIDER NORMAL VARIANT T WAVES SOMEWH AT PEAKED, Clinical correlation is recommended BORDERLINE ECG NO PREVIOUS TRACING Compared to the previous tracing, T wave changes noted DOCTOR: Jaswant Beltrán Interpretating Date/Time 05/24/2016 15:34:52
[2016-05-24 17:26] LABS: ANION GAP 11 MEQ/L (5-15); BICARBONATE 24.8 MEQ/L (21.0-32.0); BLOOD UREA NITROGEN 18 MG/DL (7-18); CHLORIDE 110 MEQ/L (98-107); GLOMERULAR FILTRATION RATE 91 ML/MIN (>89); SODIUM (NA) 146 MEQ/L (136-145)
[2016-05-24 17:27] LABS: BLOOD GAS BASE EXCESS 0.5 mmol/L (-2-2); BLOOD GAS CARBOXYHEMOGLOBIN 1.2 % (0-4); BLOOD GAS HCO3 23 mmol/L (22-26); BLOOD GAS METHEMOGLOBIN 0.8 % (0-2); BLOOD GAS O2 HGB SATURATION 97 % (90-100); BLOOD GAS OXYGEN CONTENT 15.3 Vol % (12.0-20.0); BLOOD GAS PCO2 25 mmHg (38-42); BLOOD GAS PO2 116 mmHg (61-120); BLOOD GAS TOTAL HGB 11.1 G/DL (12.0-16.0); CRITICAL VALUE YES; DRAW SITE ART LINE; FIO2 40 %; OXYGEN DEVICE VENTILATOR; TEMP CORR TO 98.6; VENT SETTINGS PRVC/AC
[2016-05-24 17:28] LABS: STAT NO
[2016-05-24 17:35] LABS: POTASSIUM 2.8 MEQ/L (3.5-5.1)
[2016-05-24] MEDS ORDERED: POTASSIUM CL 40 MEQ/30 ML LIQ UDC PO/TUBE PRN ×2 (18:00)
[2016-05-24] MEDS ORDERED: MAGNESIUM SULFATE INJ 4 GM in SODIUM CHLORIDE 0.9% INJ 92 ML IV PRN (18:00)
[2016-05-24] MEDS ORDERED: POTASSIUM PHOSPHATE MONOBASIC 500 MG TAB PO/TUBE PRN (18:00)
[2016-05-24] MEDS ORDERED: MAGNESIUM OXIDE 400 MG TAB PO PRN (18:00)
[2016-05-24] MEDS ORDERED: POTASSIUM PHOSPHATE MONOBASIC 500 MG TAB PO PRN (18:00)
[2016-05-24] MEDS ORDERED: MAGNESIUM SULFATE INJ 2 GM in SODIUM CHLORIDE 0.9% INJ 96 ML IV PRN (18:00)
[2016-05-24] MEDS ORDERED: POTASSIUM PHOSPHATE INJ 30 MMOL in SODIUM CHLOR 0.9% 250 ML INJ 250 ML IV PRN (18:00)
[2016-05-24] MEDS ORDERED: POTASSIUM CHLOR 20 MEQ PREMIX 100 ML IV PRN ×2 (18:00)
[2016-05-24] MEDS ORDERED: SODIUM PHOSPHATE INJ 30 MMOL in SODIUM CHLOR 0.9% 250 ML INJ 240 ML IV PRN (18:00)
[2016-05-24] MEDS ORDERED: POTASSIUM CHLOR 40 MEQ PREMIX 100 ML IV PRN (18:00)
[2016-05-24] MEDS: POTASSIUM CHLOR 40 MEQ PREMIX 100 ML IV PRN (18:24)
[2016-05-24 19:34] LABS: BLOOD GAS BASE EXCESS 0.7 mmol/L (-2-2); BLOOD GAS CARBOXYHEMOGLOBIN 1.2 % (0-4); BLOOD GAS HCO3 24 mmol/L (22-26); BLOOD GAS METHEMOGLOBIN 0.7 % (0-2); BLOOD GAS O2 HGB SATURATION 98 % (90-100); BLOOD GAS OXYGEN CONTENT 15.3 Vol % (12.0-20.0); BLOOD GAS PCO2 33 mmHg (38-42); BLOOD GAS PO2 161 mmHg (61-120); BLOOD GAS TOTAL HGB 10.9 G/DL (12.0-16.0); CRITICAL VALUE NO; OXYGEN DEVICE VENTILATOR; TEMP CORR TO 98.6
[2016-05-24 19:36] LABS: DRAW SITE ART LINE; FIO2 40 %; NUMBER OF ARTERIAL PUNCTURES 0; STAT NO; ULNAR PULSE PRESENT; VENT SETTINGS PRVC/R16/ITIME1.00/
[2016-05-24 22:14] LABS: BICARBONATE 25.9 MEQ/L (21.0-32.0); HDL CHOLESTEROL 53.7 MG/DL (40.0-60.0)
[2016-05-24 23:02] LABS: CALCIUM-PROTEIN CORRECTED 7.9 MG/DL (8.5-10.1)
[2016-05-25] VITALS (24 sets, daily range): BP systolic 116–149; BP diastolic 66–87; PULSE 56–67; RESP 16; TEMP 96–98.1; O2SAT 98–100
[2016-05-25] MEDS: CHLORHEXIDINE GLUCONATE 2 % 1 PACK (2 CLOTHS) TOP SCH (04:00)
[2016-05-25] MEDS: levETIRAcetam 500 MG/NS 100 ML IV SCH ×4 (04:00→16:04)
[2016-05-25] MEDS: RESP: ALBUTEROL 2.5 MG/IPRATROPIUM 0.5 MG NEB (SCH) NEB ×4 (04:04→19:49)
--- NOTE | 2016-05-25 04:49 | RADRPT ---
EXAM DATE/TIME: 05/25/2016 04:12 [facility] COMPARISON: CT BRAIN W/O CONTRAST, May 24, 2016, 7:55. INDICATIONS : Follow up bleed. RADIATION DOSE: 56.35 CTDIvol (mGy) MEDICAL HISTORY : Non-responsive. SURGICAL HISTORY : Non-responsive. ENCOUNTER: Subsequent ACUITY: 1 day PAIN SCALE: Non-responsive LOCATION: cranial TECHNIQUE: Multiple contiguous axial images were obtained of the head. Using automated exposure control and adj ustment of the mA and/or kV according to patient size, radiation dose was kept as low as reasonably a chievable to obtain optimal diagnostic quality images. FINDINGS: CEREBRUM: Involving hemorrhage involving the midbrain is again seen and not significantly changed. There is com pression upon the fourth ventricle. This does cause slight increase in dilatation of the remaining ve ntricular system. Third ventricle measures 9 mm in dimension and previously measured 7 mm. No eviden ce of midline shift, mass lesion or acute infarction. POSTERIOR FOSSA: The cerebellum is intact. The 4th ventricle is midline. The cerebellopontine angle is unremarkable. EXTRACRANIAL: The visualized portion of the orbits is intact. Diffuse paranasal sinus disease. SKULL: The calvaria is intact. No evidence of skull fracture. CONCLUSION: Large evolving brainstem hemorrhage with obstruction of the fourth ventricle. Ventricular size has in creased from previous study. Mike Glasgow MD on May 25, 2016 at 4:44 Board Certified Radiologist. This report was verified electronically.
[2016-05-25] MEDS: INSULIN ASPART SUPPLEMENTAL SCALE SQ SCH ×4 (05:00→23:00)
[2016-05-25 05:13] LABS: AUTOMATED NEUTROPHIL # 3.6 TH/MM3 (1.8-7.7); BASOPHIL % 0.7 % (0.0-2.0); EOSINOPHIL # 0.1 TH/MM3 (0-0.4); EOSINOPHIL % 2.6 % (0.0-4.0); HEMATOCRIT 30.7 % (39.0-51.0); LYMPH % 20.4 % (9.0-44.0); LYMPHOCYTE # 1.1 TH/MM3 (1.0-4.8); MEAN CELL VOLUME 82.4 FL (80.0-100.0); MEAN CORPUSCULAR HEMOGLOBIN 27.8 PG (27.0-34.0); MEAN CORPUSCULAR HGB CONC 33.8 % (32.0-36.0); MONO % 9.1 % (0.0-8.0); NEUT % 67.2 % (16.0-70.0); PLATELET COUNT 118 TH/MM3 (150-450); RED BLOOD COUNT 3.73 MIL/MM3 (4.50-5.90); RED CELL DISTRIBUTION WIDTH 21.9 % (11.6-17.2); WHITE BLOOD COUNT 5.3 TH/MM3 (4.0-11.0)
[2016-05-25] MEDS: RIFAXIMIN 200 MG TAB PO SCH ×3 (05:19→21:40)
[2016-05-25] MEDS: PROPOFOL 1000 MG/100 ML INJ 100 ML IV SCH ×5 (05:20→23:50)
[2016-05-25] MEDS: fentaNYL DRIP 250 ML IV SCH (05:20)
[2016-05-25 05:42] LABS: BLOOD GAS BASE EXCESS -1.8 mmol/L (-2-2); BLOOD GAS HCO3 22 mmol/L (22-26); BLOOD GAS METHEMOGLOBIN 0.6 % (0-2); BLOOD GAS O2 HGB SATURATION 98 % (90-100); BLOOD GAS OXYGEN CONTENT 14.4 Vol % (12.0-20.0); BLOOD GAS PCO2 31 mmHg (38-42); BLOOD GAS PO2 129 mmHg (61-120); BLOOD GAS TOTAL HGB 10.3 G/DL (12.0-16.0); TEMP CORR TO 98.6
[2016-05-25] MEDS: AMPICILLIN-SULBACTAM INJ 3 GM in SODIUM CHLORIDE 0.9% INJ 100 ML IV SCH ×4 (05:42→23:50)
[2016-05-25 05:43] LABS: CRITICAL VALUE NO
--- NOTE | 2016-05-25 05:44 | RADRPT ---
EXAM DATE/TIME: 05/25/2016 04:33 [facility] COMPARISON: CHEST SINGLE AP, May 24, 2016, 6:50. INDICATIONS : Shortness of breath, possible pulmonary disease. MEDICAL HISTORY : Hypertension. SURGICAL HISTORY : None. ENCOUNTER: Subsequent ACUITY: 2 days PAIN SCORE: Non-responsive. LOCATION: Bilateral chest FINDINGS: A single view of the chest demonstrates the lungs to be symmetrically aerated without evidence of mas s, infiltrate or effusion. Endotracheal tube, left jugular central line and nasogastric tube are stab le in position. The cardiomediastinal contours are unremarkable. Osseous structures are intact. CONCLUSION: Lungs are clear. Mike Glasgow MD on May 25, 2016 at 5:42 Board Certified Radiologist. This report was verified electronically.
[2016-05-25 05:52] LABS: OXYGEN DEVICE VENTILATOR
[2016-05-25 05:53] LABS: DRAW SITE ART LINE; FIO2 40 %; NUMBER OF ARTERIAL PUNCTURES 0; ULNAR PULSE PRESENT
[2016-05-25 05:54] LABS: STAT NO
[2016-05-25 06:02] LABS: ALKALINE PHOSPHATASE 68 U/L (45-117); ALT (GPT) 22 U/L (12-78); ANION GAP 8 MEQ/L (5-15); AST (GOT) 31 U/L (15-37); BICARBONATE 24.3 MEQ/L (21.0-32.0); BLOOD UREA NITROGEN 15 MG/DL (7-18); CHLORIDE 115 MEQ/L (98-107); CREATINE KINASE 333 U/L (39-308); GLOMERULAR FILTRATION RATE 103 ML/MIN (>89); MAGNESIUM 1.8 MG/DL (1.5-2.5); POTASSIUM 3.3 MEQ/L (3.5-5.1); SODIUM (NA) 147 MEQ/L (136-145); TOTAL BILIRUBIN ADULT 0.4 MG/DL (0.2-1.0)
[2016-05-25 06:31] LABS: CKMB 2.6 NG/ML (0.5-3.6)
[2016-05-25 07:02] LABS: HEMO FLAGS AUTO DIFF
[2016-05-25 07:03] LABS: PLATELET ESTIMATE SMEAR LOW (NORMAL); PLATELET MORPHOLOGY NORMAL (NORMAL); SCAN/DIFF AUTO DIFF CONFIRMED
[2016-05-25] MEDS: MULTIVITAMIN TAB PO SCH (08:16)
[2016-05-25] MEDS: POLYETHYLENE GLYCOL 17 GM PKG PO SCH (08:16)
[2016-05-25] MEDS: PANTOPRAZOLE SODIUM 40 MG VIAL IV SCH (08:16)
[2016-05-25] MEDS: DOCUSATE SODIUM 100 MG/10 ML UDC PO SCH ×2 (08:17→20:45)
[2016-05-25] MEDS: SENNOSIDES SYRUP 8.8 MG/5 ML CUP TUBE SCH ×2 (08:17→20:46)
[2016-05-25] MEDS: SODIUM CHLORIDE 0.9% FLUSH 5 ML FLUSH IVF SCH (08:17)
[2016-05-25] MEDS: LACTULOSE SYRUP 20 GM/30 ML CUP PO SCH ×2 (08:17→20:46)
[2016-05-25] MEDS: THIAMINE INJ 100 MG in SODIUM CHLORIDE 0.9% INJ 100 ML IV SCH (08:17)
[2016-05-25] MEDS: SODIUM CHLOR 0.9% 1000 ML INJ 1,000 ML IV SCH ×2 (08:17→19:30)
[2016-05-25] MEDS: FOLIC ACID 1 MG TAB PO SCH (08:17)
[2016-05-25] MEDS: CHLORHEXIDINE 0.12% (ORAL KIT) 15 ML CUP MT SCH ×2 (08:18→20:00)
[2016-05-25] MEDS ORDERED: POTASSIUM PHOSPHATE INJ 30 MMOL in SODIUM CHLOR 0.9% 250 ML INJ 250 ML IV ONE (09:30)
--- NOTE | 2016-05-25 09:58 | HHI.CCPN ---
Subjective Remarks/Hospital Course 51 yo WM with PMH of poorly controlled HTN, CKD stage III, reactive airway disease, tobacco abuse who [place] [facility] [place] [facility] after he was found unresponsive in his bedroom. He and his 2 year old son were in a room with the door locked and the 2 year old began crying and there was no response from patient, so the patient's roommate called the landlord to unlock the door. Upon entry, the roommate found him face down, unresponsive, with gurgling respirations. When [facility] arrived he was intubated at the scene following administration of Ativan 4 mg IV and etomidate 40 mg IV. His pupils were pinpoint and he had marijuana and associated paraphernalia in the room so overdose with contemplated and he was given Narcan 0.8 mg IV without response. Workup in the ED demonstrated large 3.5 cm hemorrhage of ruiz and midbrain with effacement of the 4th ventricle. Neurosurgery was consulted, Dr. Potter, who indicated that this was a devastating hemorrhage with poor prognosis, not amenable to intervention. He is hypertensive with BP 176/86 and has been started on cardene. Coags are normal. Likely represents hypertensive bleed as patient previously had blood pressure 230/143 during a prior ED visit in January 2016. He was supposed to be on HCTZ and lisinopril. 05/24: CURRENT TEMPERATURE 105.7. 600 cc urine past hour. Awaiting urine and serum studies. Pupils are slowly reactive now about 3 mm bilaterally. Subjective 05/25: Afebrile. Adequate urine output. Pupils are about 2 mm bilaterally and minimally reactive. Withdraws to bilateral lower extremities. Objective Vital Signs Date Time Temp Pulse Resp B/P Pulse Ox O2 Delivery O2 Flow Rate FiO2 05/25/16 08:26 99 40 05/25/16 08:00 96.0 57 16 134/71 05/23/16 23:57 Ventilator Intake and Output 05/24/16 05/24/16 05/25/16 08:00 16:00 00:00 Intake Total 4452 ml 1597 ml Output Total 2650 ml 1975 ml 801 ml Balance -2650 ml 2477 ml 796 ml Result Diagram: 05/25/16 0500 05/25/16 0500 Other Results Microbiology Date/Time Procedure Status Source Growth 05/24/16 10:50 Gram Stain - Final Resulted Sputum Endotracheal 05/24/16 10:50 Sputum Culture Resulted Sputum Endotracheal Pending 05/23/16 23:45 Aerobic Blood Culture - Preliminary Resulted Blood Peripheral NO GROWTH IN 1 DAY 05/23/16 23:45 Anaerobic Blood Culture - Preliminary Resulted Blood Peripheral NO GROWTH IN 1 DAY Imaging Last Impressions Head CT 05/25/16 0600 Signed Impressions: Service Date/Time: Wednesday, May 25, 2016 04:12 - CONCLUSION: Large evolving brainstem hemorrhage with obstruction of the fourth ventricle. Ventricular size has increased from previous study. Mike Glasgow MD Chest X-Ray 05/25/16 0000 Signed Impressions: Service Date/Time: Wednesday, May 25, 2016 04:33 - CONCLUSION: Lungs are clear. Mike Glasgow MD Renal Ultrasound 05/24/16 0000 Signed Impressions: Service Date/Time: Tuesday, May 24, 2016 09:29 - CONCLUSION: Negative for mass or hydronephrosis. Diaz Quigley MD FACR Head CTA 05/24/16 0000 Signed Impressions: Service Date/Time: Tuesday, May 24, 2016 01:39 - CONCLUSION: Normal CTA of the [place] of [place]. Luis A Glasgow MD Objective Remarks GENERAL: 51-year-old male, well nourished and well-developed currently orotracheally intubated. SKIN: Warm and dry. No rash HEAD: . Normocephalic. EYES: Pupils are around 2-3 mm bilaterally and reactive. No scleral icterus. ENT: No nasal bleeding or discharge. Mucous membranes pink and moist. NG tube in left nares NECK: Trachea midline. No thyromegaly or lymphadenopathy. Left IJ clean dry and intact CARDIOVASCULAR: RRR. S1, S2. No S4. Without murmur, clicks, gallops or rubs RESPIRATORY: Diminished breath sounds throughout all lung worley. Few crackles appreciated right greater than left lower lobe GASTROINTESTINAL: Abdomen soft, non-tender, nondistended. Hypoactive bowel sounds : Archuleta in place. No scrotal edema MUSCULOSKELETAL: Extremities without significant peripheral edema. No obvious deformities. NEUROLOGICAL: No gaze deviation. Corneal reflexes are intact. Positive gag. . Extensor in bilateral lower extremities. No response to Babinski upward or downward. Urinary Catheter: Yes Assessment to: Continue Archuleta insert reason: Prolonged Immobilization Vascular Central Line Catheter: Yes Assessment to: Continue Date of Insertion: May 24, 2016 Line: Central Venous Catheter Side: Left Location: Internal, Jugular A/P Problem List: (1) Acute respiratory failure with hypoxia and hypercarbia ICD Code: J96.01 Status: Acute (2) Nontraumatic brainstem hemorrhage ICD Code: I61.3 Status: Acute (3) Poorly controlled blood pressure ICD Code: I99.8 Status: Chronic (4) Lactic acidemia ICD Code: E87.2 Status: Acute (5) CKD (chronic kidney disease) stage 3, GFR 30-59 ml/min ICD Code: N18.3 Status: Chronic (6) Tobacco abuse ICD Code: Z72.0 Status: Chronic (7) Aspiration pneumonia ICD Code: J69.0 Status: Acute (8) Marijuana abuse ICD Code: F12.10 Status: Chronic (9) Hyperglycemia ICD Code: R73.9 Status: Acute (10) Malignant hypertension ICD Code: I10 Status: Acute (11) Reactive airway disease ICD Code: J45.909 Status: Chronic Assessment and Plan NEURO/Psych: Acute brainstem hemorrhage (ruiz and mesencephalon 3.5 cm) likely hypertensive THC abuse Currently on propofol at 35 mcg/kg per minute/fentanyl 100 g an hour drips for sedation/analgesia while intubated No sedation vacation CT head 05/25 revealed stable hemorrhage brainstem including the ruiz and mesencephalon. Effacement of the fourth ventricle noted now 9 mm. Some hemorrhage in the cerebral peduncles as well. CTA obtained shows no evidence of vascular abnormality/Intact [place] of [place] MRA brain ordered today Keppra 500 mg IV q12 hours for seizure prophylaxis 7 days Given fosphenytoin load 1 gram in ED because unable to r/o seizure. EEG revealed severe encephalopathy. No epileptiform activity Acetaminophen/cooling blanket as needed for temp >100.4 End tidal CO2 in effort to maintain PaCO2 30-35 Per neurosurgery recommendations start 3% hypertonic saline goal sodium 145-154. Utilize Cleviprex for hypertensionsystolic blood pressure greater than 150 and/ or norepinephrine for systolic blood pressure less than 120 and titrate to maintain systolic blood pressure 120-150. Neurosurgery consult/Dr. Potter Repeat head CT now with new neurological findings Smoking cessation booklet left at bedside. Education provided when clinically indicated RESP: Acute respiratory failure - multifactorial secondary to Reactive airway disease Aspiration pneumonia Tobaccoism Patient currently has a 7.0 ET tube placed by [facility] PRVC 18/compatible around 550/inspiratory time 40 Ventilator bundle. DuoNeb every 6 hours. Albuterol every 2 hours when necessary. CXR1/9satisfactory endotracheal tube position. Right middle and right lower lobe infiltrate. Antibiotics as per below. Not appropriate for spontaneous breathing trial due to neurologic condition. CV: Malignant hypertension Lactic acidemia - resolved Cleviprex/norepinephrine as per above BNP elevation ? secondary to severe HTN. Will f/u Echo Initial troponin negative. EKG shows no acute ST-T findings GI: ? Irritable bowel syndrome Hyper ammonia Patient is on vital 1.5 goal 60 cc an hour currently at 40 Protonix for GI prophylaxis Colace/Senokot twice a day for bowel regimen Started Xifaxan 400 mg every 8/lactulose 30 cc twice a day for ammonia 102. Recheck in a.m. FEN/RENAL: Acute anion gap metabolic acidemia Chronic kidney disease stage III - resolved Hypopotassemia Hypophosphatemia Hypo-magnesium Archuleta in place. Monitor intake and output. Monitor electrolytes and replace clinically as indicated. 2 g mag sulfate IV, 30 mmol potassium phosphate and 20 mEq potassium chloride. Recheck in a.m. ID: Aspiration pneumonia Received Cefepime and azithromycin in the ED. Day #2 Unasyn to cover community acquired organisms/anaerobes. Pertinent cultures /8 - blood cultures 2 - pending /8 - sputum - pending HEME: Normocytic anemia Thrombocytopenia Monitor CBC follow trends. ENDO: Acute hyperglycemia without known history of diabetes. likely stress reaction Low-dose insulin sliding scale at bedside glucose every 6 hours Access - Left IJ CVL day #2 Prophylaxis - GI -Protonix - DVT - SCD/pharmacological prophylaxis contraindicated status post intracerebral hemorrhage Critical Care: The total critical care time was 35 minutes. Time to perform other separately billable procedures was not included in the critical care time. Problem Qualifiers (1) Aspiration pneumonia: Qualified Code: J69.0 - Aspiration pneumonia, unspecified aspiration pneumonia type, unspecified laterality, unspecified part of lung (2) Reactive airway disease: Qualified Code: J45.909 - Reactive airway disease, unspecified asthma severity , uncomplicated Sudhakar Huynh MD May 25, 2016 09:58
[2016-05-25] MEDS ORDERED: POTASSIUM CHLOR 20 MEQ PREMIX 100 ML IV ONE (10:00)
[2016-05-25] MEDS: MAGNESIUM SULFATE 1 GM PREMIX 100 ML IV SCH ×2 (10:32→11:21)
[2016-05-25 12:46] LABS: HEMOGLOBIN A1a 0.9 %; HEMOGLOBIN A1b 1.5 %; HEMOGLOBIN Ao 85.9 %; HEMOGLOBIN LA1C 1.6 %; HEMOGLOBIN P3 5.4 %
[2016-05-25] MEDS ORDERED: GADODIAMIDE PF 287 MG/ML 20 ML VIAL (for RAD MRI) IV ONE (14:57)
--- NOTE | 2016-05-25 15:27 | RADRPT ---
EXAM DATE/TIME: 05/25/2016 13:53 [facility] COMPARISON: CTA BRAIN W 3D RECON, May 24, 2016, 1:39. CT BRAIN W/O CONTRAST, May 25, 2016, 4:12. INDICATIONS : Intracranial bleed. CONTRAST: 40 cc Omniscan (gadodiamide) IV MEDICAL HISTORY : Congestive heart failure. Hypertension. Diverticulosis. SURGICAL HISTORY : Polyps removed from colon. ENCOUNTER: Subsequent ACUITY: 2 day PAIN SCORE: Nonresponsive. LOCATION: neck Percent stenosis is calculated using the diameter of the stenotic region over the diameter of the nor mal distal internal carotid artery. TECHNIQUE: Bolus infused MRA of the extracranial circulation was performed using a neurovascular coil. Post pro cessing was performed including rotationg subvolume maximum intensity projections of each carotid art braden, rotating full volume maximum intensity projections of both carotid arteries, sagittal and torres l sliding thin slab reformations of each carotid artery, and left oblique sliding thin slab reformati on through the aortic arch to include the origin of the arch branch vessels. FINDINGS: AORTIC ARCH: There is a three vessel origin of the great vessels from the aorta. No evidence of ostial narrowing. RIGHT CAROTID: The common carotid artery is intact. The carotid bulb has a normal configuration without ulceration or narrowing. The internal carotid artery lumen is smooth without stenosis. The external carotid ar serge is intact. LEFT CAROTID: The common carotid artery is intact. The carotid bulb has a normal configuration without ulceration or narrowing. The internal carotid artery lumen is smooth without stenosis. The external carotid ar serge is intact. VERTEBRALS: The vertebral arteries have a symmetric diameter. No stenotic lesions are seen. CONCLUSION: Normal examination. No evidence of significant atherosclerotic vascular disease or stenosis. Brice Mcgarry MD on May 25, 2016 at 15:23 Board Certified Radiologist. This report was verified electronically.
[2016-05-25] MEDS: NOREPINEPHRINE-DEXTROSE DRIP 250 ML IV SCH (16:30)
[2016-05-25 18:22] LABS: POTASSIUM 4.3 MEQ/L (3.5-5.1)
[2016-05-25] MEDS ORDERED: SODIUM CHLOR 0.9% 1000 ML INJ 1,000 ML IV ONE (18:30)
--- NOTE | 2016-05-25 21:44 | HHI.NSPN ---
Exam Results Vital Signs Date Time Temp Pulse Resp B/P Pulse Ox O2 Delivery O2 Flow Rate FiO2 05/25/16 20:00 58 05/25/16 20:00 96.8 16 149/87 100 05/25/16 19:49 40 05/23/16 23:57 Ventilator Intake and Output 05/24/16 05/24/16 05/25/16 08:00 16:00 00:00 Intake Total 4452 ml 1597 ml Output Total 2650 ml 1975 ml 801 ml Balance -2650 ml 2477 ml 796 ml Physical Examination Remains intubated. Low-dose intravenous sedation-30 mics propofol Pupils 2 mm nonreactive With sedation decrease, no eye opening spontaneous to voice or to deep pain Absent corneal and oculocephalic responses Mild cough response was suctioning No response to deep pain all extremities Respirations clear Cardiac regular without murmur Abdomen soft No significant extremity edema Lab, Micro, Other Results 05/25/16 CT scan head images reviewed. Persistent large brainstem hemorrhage. Moderate ventriculomegaly-increased from 05/24/[address] 05/25/16 0600 Signed Impressions: Service Date/Time: Wednesday, May 25, 2016 04:12 - CONCLUSION: Large evolving brainstem hemorrhage with obstruction of the fourth ventricle. Ventricular size has increased from previous study. Mike Glasgow MD Neck Magnetic Resonance Angiography 05/25/16 0000 Signed Impressions: Service Date/Time: Wednesday, May 25, 2016 13:53 - CONCLUSION: Normal examination. No evidence of significant atherosclerotic vascular disease or stenosis. Brice Mcgarry MD Chest X-Ray 05/25/16 0000 Signed Impressions: Service Date/Time: Wednesday, May 25, 2016 04:33 - CONCLUSION: Lungs are clear. Mike lGasgow MD Medical Decision Making Impression and Plan Impression: 1. Severe brainstem and intracranial hemorrhage. Patient remains comatose. Plan: I had a long discussion with the patient's sister on the telephone today in the presence of nursing staff. The CT scan findings were discussed with her. I advised her that the patient has a severe intracranial hemorrhage and neurologic deficit. Overall prognosis for meaningful recovery and independent function is very poor. If the family desires aggressive care, it is an anticipated that the patient will require ventriculostomy and possible [employer] shunt placement, tracheostomy, PEG tube, with long-term senior living facility placement. I advised the patient sister today, that due to the increase ventriculomegaly, that a ventriculostomy is needed if they wish to continue aggressive care of the patient. She stated that she does not want a ventriculostomy placed until she has a chance to talk to other family members. She states that her father with an intracranial hemorrhage after 10 days, and she is uncertain whether the other family members will want to continue full care and necessary interventions versus comfort measures and possible withdrawal of support. She states that she will try to talk to the other family members and have an answer tonight or in the morning. She understands that continued intraventricular's final fluid buildup without ventriculostomy could result in further injury to the brain. The above as well as plan of care discussed with nursing staff. Chavo Potter MD May 25, 2016 21:44
[2016-05-26] VITALS (18 sets, daily range): BP systolic 110–151; BP diastolic 49–76; PULSE 56–91; RESP 16; TEMP 96.5–99.2; O2SAT 96–100
[2016-05-26] MEDS: RESP: ALBUTEROL 2.5 MG/IPRATROPIUM 0.5 MG NEB (SCH) NEB ×4 (03:14→20:50)
[2016-05-26] MEDS: levETIRAcetam 500 MG/NS 100 ML IV SCH ×4 (04:00→16:45)
[2016-05-26] MEDS: CHLORHEXIDINE GLUCONATE 2 % 1 PACK (2 CLOTHS) TOP SCH (04:00)
[2016-05-26] MEDS: INSULIN ASPART SUPPLEMENTAL SCALE SQ SCH ×3 (05:00→17:00)
[2016-05-26 05:06] LABS: AUTOMATED NEUTROPHIL # 4.8 TH/MM3 (1.8-7.7); BASOPHIL % 0.5 % (0.0-2.0); EOSINOPHIL # 0.2 TH/MM3 (0-0.4); EOSINOPHIL % 3.2 % (0.0-4.0); HEMATOCRIT 30.7 % (39.0-51.0); HEMO FLAGS DIFF FINAL; LYMPH % 15.1 % (9.0-44.0); MEAN CELL VOLUME 83.8 FL (80.0-100.0); MEAN CORPUSCULAR HEMOGLOBIN 27.6 PG (27.0-34.0); MEAN CORPUSCULAR HGB CONC 32.9 % (32.0-36.0); MONO % 7.4 % (0.0-8.0); NEUT % 73.8 % (16.0-70.0); PLATELET COUNT 100 TH/MM3 (150-450); RED BLOOD COUNT 3.66 MIL/MM3 (4.50-5.90); RED CELL DISTRIBUTION WIDTH 22.4 % (11.6-17.2); WHITE BLOOD COUNT 6.6 TH/MM3 (4.0-11.0)
[2016-05-26] MEDS: SODIUM CHLOR 0.9% 1000 ML INJ 1,000 ML IV SCH ×2 (05:09→13:45)
[2016-05-26 05:15] LABS: BICARBONATE 23.6 MEQ/L (21.0-32.0); CALCIUM-PROTEIN CORRECTED 8.2 MG/DL (8.5-10.1); MAGNESIUM 2.4 MG/DL (1.5-2.5); TOTAL BILIRUBIN ADULT 0.3 MG/DL (0.2-1.0)
[2016-05-26] MEDS: RIFAXIMIN 200 MG TAB PO SCH ×3 (05:21→21:43)
[2016-05-26] MEDS: AMPICILLIN-SULBACTAM INJ 3 GM in SODIUM CHLORIDE 0.9% INJ 100 ML IV SCH ×4 (05:21→23:37)
[2016-05-26] MEDS: PROPOFOL 1000 MG/100 ML INJ 100 ML IV SCH ×2 (05:22→08:13)
[2016-05-26] MEDS: CHLORHEXIDINE 0.12% (ORAL KIT) 15 ML CUP MT SCH ×2 (08:11→20:00)
[2016-05-26] MEDS: PANTOPRAZOLE SODIUM 40 MG VIAL IV SCH (08:11)
[2016-05-26] MEDS: DOCUSATE SODIUM 100 MG/10 ML UDC PO SCH ×2 (08:11→20:27)
[2016-05-26] MEDS: FOLIC ACID 1 MG TAB PO SCH (08:11)
[2016-05-26] MEDS: LACTULOSE SYRUP 20 GM/30 ML CUP PO SCH ×2 (08:11→20:27)
[2016-05-26] MEDS: MULTIVITAMIN TAB PO SCH (08:12)
[2016-05-26] MEDS: SENNOSIDES SYRUP 8.8 MG/5 ML CUP TUBE SCH ×2 (08:12→20:27)
[2016-05-26] MEDS: SODIUM CHLORIDE 0.9% FLUSH 5 ML FLUSH IVF SCH (08:13)
[2016-05-26] MEDS: POLYETHYLENE GLYCOL 17 GM PKG PO SCH (08:13)
[2016-05-26] MEDS: THIAMINE INJ 100 MG in SODIUM CHLORIDE 0.9% INJ 100 ML IV SCH (08:43)
[2016-05-26] MEDS: hydrALAZINE HCL 20 MG/ML VIAL IV PUSH PRN ×2 (10:27→14:48)
--- NOTE | 2016-05-26 11:08 | EC ---
Study Study Date:05/25/2016 STUDY CONCLUSIONS SUMMARY - Procedure narrative: Transthoracic echocardiography. Image quality was poor. Scanning was performed from the parasternal, apical, and subcostal acoustic windows. - Left ventricle: The cavity size was normal. Wall thickness was normal. Systolic function was normal. The estimated ejection fraction was 55%, in the range of 40% to 60%. - Aortic valve: Valve area: 1.72cm^2 (Vmax). - Tricuspid valve: Mild regurgitation. - Pulmonary arteries: PA peak pressure: 37mm Hg (S). If LV function is below 40, please consider prescribing an ACEI or ARB or document rationale for non-use. PROCEDURE DATA STUDY STATUS: Elective. Procedure: Transthoracic echocardiography. Image quality was poor. Scanning was performed from the parasternal, apical, and subcostal acoustic windows. Study completion: The patient tolerated the procedure well. Transthoracic echocardiography. M-mode, complete 2D, complete spectral Doppler, and color Doppler. Patient status: Inpatient. CARDIAC ANATOMY LEFT VENTRICLE: The cavity size was normal. Wall thickness was normal. Systolic function was normal. The estimated ejection fraction was 55%, in the range of 40% to 60%. Images were inadequate for LV wall motion assessment. AORTIC VALVE: Not well visualized. Doppler: Transvalvular velocity was within the normal range. There was no stenosis. No regurgitation. Valve area: 1.72cm^2 (Vmax). Peak gradient: 11mm Hg (S). AORTA: Aortic root: The aortic root was normal in size. MITRAL VALVE: Structurally normal valve. Doppler: Transvalvular velocity was within the normal range. There was no evidence for stenosis. No regurgitation. Peak gradient: 2mm Hg (D). LEFT ATRIUM: The atrium was normal in size. RIGHT VENTRICLE: The cavity size was normal. Wall thickness was normal. PULMONIC VALVE: Doppler: Transvalvular velocity was within the normal range. There was no evidence for stenosis. No regurgitation. TRICUSPID VALVE: Structurally normal valve. Doppler: Transvalvular velocity was within the normal range. Mild regurgitation. PULMONARY ARTERY: Not visualized. The main pulmonary artery was normal-sized. Systolic pressure was within the normal range. RIGHT ATRIUM: The atrium was normal in size. PERICARDIUM: There was no pericardial effusion. SYSTEMIC VEINS: Inferior vena cava: Not visualized. BASIC MEASUREMENTS ADULT NORMAL Left ventricle LV internal dimension, ED, chordal level, 44.4 mm 43-52 PLAX LV internal dimension, ES, chordal level, *39.1 mm 23-38 PLAX Fractional shortening, chordal level, PLAX *12 % >29 LV posterior wall thickness, ED 9.91 mm IVS/LVPW ratio, ED 0.83 <1.3 Ventricular septum Septal thickness, ED 8.19 mm DOPPLER MEASUREMENTS ADULT NORMAL Main pulmonary artery Pressure, S *37 mm Hg =30 Aortic valve Peak velocity, S 163 cm/s Peak gradient, S 11 mm Hg Valve area, Vmax 1.72 cm^2 Mitral valve Peak E-wave velocity 73.5 cm/s Peak A-wave velocity 68.1 cm/s Deceleration time 197 ms 150-230 Peak gradient, D 2 mm Hg Peak E/A ratio 1.1 Tricuspid valve Regurgitant peak velocity 258 cm/s Peak RV-RA gradient, S 27 mm Hg Maximal regurgitant velocity 258 cm/s Systemic veins Estimated CVP 10 mm Hg Right ventricle RV pressure, S *37 mm Hg <30 LEGEND: Mean values are shown as u=mean value. Asterisk (*) garces values outside specified normal range. Prepared and signed by Jair Blunt [id number]
[2016-05-26] MEDS: niCARdipine INJ 25 MG in SODIUM CHLOR 0.9% 250 ML INJ 250 ML IV SCH (13:45)
[2016-05-26] MEDS ORDERED: cloNIDine HCL 0.2 MG/24 HR PATCH TD SCH (15:00)
--- NOTE | 2016-05-26 16:04 | HHI.CCPN ---
Subjective Remarks/Hospital Course 51 yo WM with PMH of poorly controlled HTN, CKD stage III, reactive airway disease, tobacco abuse who presents to [facility] [place] via [facility] after he was found unresponsive in his bedroom. He and his 2 year old son were in a room with the door locked and the 2 year old began crying and there was no response from patient, so the patient's roommate called the landlord to unlock the door. Upon entry, the roommate found him face down, unresponsive, with gurgling respirations. When [facility] arrived he was intubated at the scene following administration of Ativan 4 mg IV and etomidate 40 mg IV. His pupils were pinpoint and he had marijuana and associated paraphernalia in the room so overdose with contemplated and he was given Narcan 0.8 mg IV without response. Workup in the ED demonstrated large 3.5 cm hemorrhage of ruiz and midbrain with effacement of the 4th ventricle. Neurosurgery was consulted, Dr. Potter, who indicated that this was a devastating hemorrhage with poor prognosis, not amenable to intervention. He is hypertensive with BP 176/86 and has been started on cardene. Coags are normal. Likely represents hypertensive bleed as patient previously had blood pressure 230/143 during a prior ED visit in January 2016. He was supposed to be on HCTZ and lisinopril. 05/24: CURRENT TEMPERATURE 105.7. 600 cc urine past hour. Awaiting urine and serum studies. Pupils are slowly reactive now about 3 mm bilaterally. Subjective 05/25: Afebrile. Adequate urine output. Pupils are about 2 mm bilaterally and minimally reactive. Withdraws to bilateral lower extremities. Objective Vital Signs Date Time Temp Pulse Resp B/P Pulse Ox O2 Delivery O2 Flow Rate FiO2 05/26/16 15:00 96 40 05/26/16 14:00 70 05/26/16 12:00 97.6 16 126/49 05/23/16 23:57 Ventilator Intake and Output 05/25/16 05/25/16 05/26/16 08:00 16:00 00:00 Intake Total 1462 ml 2007 ml 1974 ml Output Total 300 ml 275 ml 200 ml Balance 1162 ml 1732 ml 1774 ml Result Diagram: 05/26/16 0430 05/26/16 1235 Other Results Microbiology Date/Time Procedure Status Source Growth 05/24/16 10:50 Gram Stain - Final Complete Sputum Endotracheal 05/24/16 10:50 Sputum Culture - Final Complete Sputum Endotracheal HEAVY GROWTH NORMAL RESPIRATORY [facility] Imaging Last Impressions Head CT 05/25/16 0600 Signed Impressions: Service Date/Time: Wednesday, May 25, 2016 04:12 - CONCLUSION: Large evolving brainstem hemorrhage with obstruction of the fourth ventricle. Ventricular size has increased from previous study. Mike Glasgow MD Chest X-Ray 05/25/16 0000 Signed Impressions: Service Date/Time: Wednesday, May 25, 2016 04:33 - CONCLUSION: Lungs are clear. Mike Glasgow MD Renal Ultrasound 05/24/16 0000 Signed Impressions: Service Date/Time: Tuesday, May 24, 2016 09:29 - CONCLUSION: Negative for mass or hydronephrosis. Diaz Quigley MD FACR Head CTA 05/24/16 0000 Signed Impressions: Service Date/Time: Tuesday, May 24, 2016 01:39 - CONCLUSION: Normal CTA of the [place]. Luis A Glasgow MD Objective Remarks GENERAL: 51-year-old male, well nourished and well-developed currently orotracheally intubated. SKIN: Warm and dry. No rash HEAD: . Normocephalic. EYES: Pupils are around 2-3 mm bilaterally and reactive. No scleral icterus. ENT: No nasal bleeding or discharge. Mucous membranes pink and moist. NG tube in left nares NECK: Trachea midline. No thyromegaly or lymphadenopathy. Left IJ clean dry and intact CARDIOVASCULAR: RRR. S1, S2. No S4. Without murmur, clicks, gallops or rubs RESPIRATORY: Diminished breath sounds throughout all lung worley. Few crackles appreciated right greater than left lower lobe GASTROINTESTINAL: Abdomen soft, non-tender, nondistended. Hypoactive bowel sounds : Archuleta in place. No scrotal edema MUSCULOSKELETAL: Extremities without significant peripheral edema. No obvious deformities. NEUROLOGICAL: No gaze deviation. Corneal reflexes are intact. Positive gag. . Extensor in bilateral lower extremities. No response to Babinski upward or downward. Date of Insertion: May 24, 2016 Line: Central Venous Catheter Side: Left Location: Internal, Jugular A/P Problem List: (1) Acute respiratory failure with hypoxia and hypercarbia ICD Code: J96.01 Status: Acute (2) Nontraumatic brainstem hemorrhage ICD Code: I61.3 Status: Acute (3) Poorly controlled blood pressure ICD Code: I99.8 Status: Chronic (4) Lactic acidemia ICD Code: E87.2 Status: Acute (5) CKD (chronic kidney disease) stage 3, GFR 30-59 ml/min ICD Code: N18.3 Status: Chronic (6) Tobacco abuse ICD Code: Z72.0 Status: Chronic (7) Aspiration pneumonia ICD Code: J69.0 Status: Acute (8) Marijuana abuse ICD Code: F12.10 Status: Chronic (9) Hyperglycemia ICD Code: R73.9 Status: Acute (10) Malignant hypertension ICD Code: I10 Status: Acute (11) Reactive airway disease ICD Code: J45.909 Status: Chronic Assessment and Plan NEURO/Psych: Acute brainstem hemorrhage (ruiz and mesencephalon 3.5 cm) likely hypertensive THC use Discussed with patient's sister who contacted all reactives and they understand extremely poor neurological outcome. They all agreed with no escalation of care, no resuscitation and comfort care only. Two sisters are working on arrangement to come and be present when the ventilator support should be disconnected. At a mean time we will continue current medical management as bellow: Currently on propofol at 35 mcg/kg per minute/fentanyl 100 g an hour drips for sedation/analgesia while intubated No sedation vacation CT head 05/25 revealed stable hemorrhage brainstem including the ruiz and mesencephalon. Effacement of the fourth ventricle noted now 9 mm. Some hemorrhage in the cerebral peduncles as well. CTA obtained shows no evidence of vascular abnormality/Intact [place] [facility] [place] MRA brain ordered today Keppra 500 mg IV q12 hours for seizure prophylaxis 7 days Given fosphenytoin load 1 gram in ED because unable to r/o seizure. EEG revealed severe encephalopathy. No epileptiform activity Acetaminophen/cooling blanket as needed for temp >100.4 End tidal CO2 in effort to maintain PaCO2 30-35 Per neurosurgery recommendations start 3% hypertonic saline goal sodium 145-154. Utilize Cleviprex for hypertensionsystolic blood pressure greater than 150 and/ or norepinephrine for systolic blood pressure less than 120 and titrate to maintain systolic blood pressure 120-150. Neurosurgery consult/Dr. Potter Repeat head CT now with new neurological findings Smoking cessation booklet left at bedside. Education provided when clinically indicated RESP: Acute respiratory failure - multifactorial secondary to Reactive airway disease Aspiration pneumonia Tobaccoism Patient currently has a 7.0 ET tube placed by [facility] PRVC 18/compatible around 550/inspiratory time 05/21/40 Ventilator bundle. DuoNeb every 6 hours. Albuterol every 2 hours when necessary. CXR1/9satisfactory endotracheal tube position. Right middle and right lower lobe infiltrate. Antibiotics as per below. Not appropriate for spontaneous breathing trial due to neurologic condition. CV: Malignant hypertension Lactic acidemia - resolved Cleviprex/norepinephrine as per above BNP elevation ? secondary to severe HTN. Will f/u Echo Initial troponin negative. EKG shows no acute ST-T findings GI: ? Irritable bowel syndrome Hyper ammonia Patient is on vital 1.5 goal 60 cc an hour currently at 40 Protonix for GI prophylaxis Colace/Senokot twice a day for bowel regimen Started Xifaxan 400 mg every 8/lactulose 30 cc twice a day for ammonia 102. Recheck in a.m. FEN/RENAL: Acute anion gap metabolic acidemia Chronic kidney disease stage III - resolved Hypopotassemia Hypophosphatemia Hypo-magnesium Archuleta in place. Monitor intake and output. Monitor electrolytes and replace clinically as indicated. 2 g mag sulfate IV, 30 mmol potassium phosphate and 20 mEq potassium chloride. Recheck in a.m. ID: Aspiration pneumonia Received Cefepime and azithromycin in the ED. Day #2 Unasyn to cover community acquired organisms/anaerobes. Pertinent cultures /8 - blood cultures 2 - pending /8 - sputum - pending HEME: Normocytic anemia Thrombocytopenia Monitor CBC follow trends. ENDO: Acute hyperglycemia without known history of diabetes. likely stress reaction Low-dose insulin sliding scale at bedside glucose every 6 hours Access - Left IJ CVL day #2 Prophylaxis - GI -Protonix - DVT - SCD/pharmacological prophylaxis contraindicated status post intracerebral hemorrhage Level 1 Problem Qualifiers (1) Aspiration pneumonia: Qualified Code: J69.0 - Aspiration pneumonia, unspecified aspiration pneumonia type, unspecified laterality, unspecified part of lung (2) Reactive airway disease: Qualified Code: J45.909 - Reactive airway disease, unspecified asthma severity , uncomplicated David Kamara MD May 26, 2016 16:04
--- NOTE | 2016-05-26 20:12 | HHI.NSPN ---
History Interval History Patient found unresponsive at home. Initial CT scan with extensive brainstem intracranial hemorrhage. 05/25/16: Remains unresponsive. Continuing ventilatory support. Findings discussed with family on telephone and they are making decision regarding care. Follow-up CT scan with moderate increased ventricular enlargement. Family indicates no invasive procedures including ventriculostomy until further family conference and decision making. 05/26/16: Remains unresponsive. Family has indicated NO CODE STATUS with no invasive procedures, comfort measures only. Exam Results Vital Signs Date Time Temp Pulse Resp B/P Pulse Ox O2 Delivery O2 Flow Rate FiO2 05/26/16 18:00 67 05/26/16 16:00 99.2 16 151/70 96 Arterial Line 05/26/16 15:00 40 05/23/16 23:57 Ventilator Intake and Output 05/25/16 05/25/16 05/26/16 08:00 16:00 00:00 Intake Total 1462 ml 2007 ml 1974 ml Output Total 300 ml 275 ml 200 ml Balance 1162 ml 1732 ml 1774 ml Physical Examination Remains intubated. Low-dose intravenous sedation-30 mics propofol Pupils 2 mm nonreactive With sedation decreased: no eye opening spontaneous to voice or to deep pain Absent corneal and oculocephalic responses Minimal cough with suctioning No response to deep pain all extremities Respirations clear Cardiac regular without murmur Abdomen soft No significant extremity edema Lab, Micro, Other Results Laboratory Tests Test 05/25/16 05/26/16 05/26/16 23:40 04:30 12:35 Sodium Level 150 MEQ/L 150 MEQ/L 149 MEQ/L Serum Osmolality 307 MOSM/KG 307 MOSM/KG 310 MOSM/KG White Blood Count 6.6 TH/MM3 Red Blood Count 3.66 MIL/MM3 Hemoglobin 10.1 GM/DL Hematocrit 30.7 % Mean Corpuscular Volume 83.8 FL Mean Corpuscular Hemoglobin 27.6 PG Mean Corpuscular Hemoglobin 32.9 % Concent Red Cell Distribution Width 22.4 % Platelet Count 100 TH/MM3 Mean Platelet Volume 9.5 FL Neutrophils (%) (Auto) 73.8 % Lymphocytes (%) (Auto) 15.1 % Monocytes (%) (Auto) 7.4 % Eosinophils (%) (Auto) 3.2 % Basophils (%) (Auto) 0.5 % Neutrophils # (Auto) 4.8 TH/MM3 Lymphocytes # (Auto) 1.0 TH/MM3 Monocytes # (Auto) 0.5 TH/MM3 Eosinophils # (Auto) 0.2 TH/MM3 Basophils # (Auto) 0.0 TH/MM3 CBC Comment DIFF FINAL Differential Comment Potassium Level 4.0 MEQ/L Chloride Level 120 MEQ/L Carbon Dioxide Level 23.6 MEQ/L Anion Gap 6 MEQ/L Blood Urea Nitrogen 11 MG/DL Creatinine 0.74 MG/DL Estimat Glomerular Filtration 111 ML/MIN Rate Random Glucose 90 MG/DL Lactic Acid Level 0.9 mmol/L Calcium Level 7.3 MG/DL Protein Corrected Calcium 8.2 MG/DL Phosphorus Level 2.5 MG/DL Magnesium Level 2.4 MG/DL Total Bilirubin 0.3 MG/DL Aspartate Amino Transf 22 U/L (AST/SGOT) Alanine Aminotransferase 19 U/L (ALT/SGPT) Alkaline Phosphatase 69 U/L Total Protein 5.5 GM/DL Albumin 2.4 GM/DL Troponin I 0.49 NG/ML Medical Decision Making Impression and Plan Impression: 1. Severe brainstem and intracranial hemorrhage. Patient remains comatose. Plan: I had a long discussion with the patient's sister on the telephone last evening in the presence of the nursing staff The CT scan findings were discussed. The patient's family has decided today that they do not desire any invasive treatment including ventriculostomy. They request comfort measures only. Patient is DO NOT RESUSCITATE status. Discussed with nursing staff. Continuing ventilatory support Ventriculostomy and other invasive measures will be held in accordance with the family wishes. Patient and terminal condition Chavo Potter MD May 26, 2016 20:12
[2016-05-27] VITALS (18 sets, daily range): BP systolic 121–178; BP diastolic 64–95; PULSE 58–98; RESP 16–22; TEMP 98.9–101.4; O2SAT 93–100
[2016-05-27] MEDS: PROPOFOL 1000 MG/100 ML INJ 100 ML IV SCH ×2 (02:27→10:40)
[2016-05-27] MEDS: CHLORHEXIDINE GLUCONATE 2 % 1 PACK (2 CLOTHS) TOP SCH (02:41)
[2016-05-27] MEDS: RESP: ALBUTEROL 2.5 MG/IPRATROPIUM 0.5 MG NEB (SCH) NEB ×4 (03:21→19:51)
[2016-05-27] MEDS: AMPICILLIN-SULBACTAM INJ 3 GM in SODIUM CHLORIDE 0.9% INJ 100 ML IV SCH ×3 (05:14→18:39)
[2016-05-27] MEDS: RIFAXIMIN 200 MG TAB PO SCH ×3 (05:14→22:00)
[2016-05-27] MEDS: MULTIVITAMIN TAB PO SCH (07:57)
[2016-05-27] MEDS: CHLORHEXIDINE 0.12% (ORAL KIT) 15 ML CUP MT SCH ×2 (07:57→20:36)
[2016-05-27] MEDS: FOLIC ACID 1 MG TAB PO SCH (07:57)
[2016-05-27] MEDS: PANTOPRAZOLE SODIUM 40 MG VIAL IV SCH (07:57)
[2016-05-27] MEDS: SENNOSIDES SYRUP 8.8 MG/5 ML CUP TUBE SCH ×2 (07:58→20:36)
[2016-05-27] MEDS: LACTULOSE SYRUP 20 GM/30 ML CUP PO SCH ×2 (07:58→20:36)
[2016-05-27] MEDS: DOCUSATE SODIUM 100 MG/10 ML UDC PO SCH ×2 (07:58→20:36)
[2016-05-27] MEDS: SODIUM CHLORIDE 0.9% FLUSH 5 ML FLUSH IVF SCH (07:58)
[2016-05-27] MEDS: POLYETHYLENE GLYCOL 17 GM PKG PO SCH (07:58)
[2016-05-27] MEDS: THIAMINE INJ 100 MG in SODIUM CHLORIDE 0.9% INJ 100 ML IV SCH (07:58)
[2016-05-27] MEDS: hydrALAZINE HCL 20 MG/ML VIAL IV PUSH PRN (09:47)
[2016-05-27] MEDS: niCARdipine INJ 25 MG in SODIUM CHLOR 0.9% 250 ML INJ 250 ML IV SCH ×2 (10:41→12:26)
[2016-05-27] MEDS: fentaNYL DRIP 250 ML IV SCH (10:41)
[2016-05-27] MEDS: SODIUM CHLOR 0.9% 1000 ML INJ 1,000 ML IV SCH (15:18)
--- NOTE | 2016-05-27 15:42 | HHI.CCPN ---
Subjective Remarks/Hospital Course 51 yo WM with PMH of poorly controlled HTN, CKD stage III, reactive airway disease, tobacco abuse who presents to [facility] [place] via [facility] after he was found unresponsive in his bedroom. He and his 2 year old son were in a room with the door locked and the 2 year old began crying and there was no response from patient, so the patient's roommate called the landlord to unlock the door. Upon entry, the roommate found him face down, unresponsive, with gurgling respirations. When [facility] arrived he was intubated at the scene following administration of Ativan 4 mg IV and etomidate 40 mg IV. His pupils were pinpoint and he had marijuana and associated paraphernalia in the room so overdose with contemplated and he was given Narcan 0.8 mg IV without response. Workup in the ED demonstrated large 3.5 cm hemorrhage of ruiz and midbrain with effacement of the 4th ventricle. Neurosurgery was consulted, Dr. Potter, who indicated that this was a devastating hemorrhage with poor prognosis, not amenable to intervention. He is hypertensive with BP 176/86 and has been started on cardene. Coags are normal. Likely represents hypertensive bleed as patient previously had blood pressure 230/143 during a prior ED visit in January 2016. He was supposed to be on HCTZ and lisinopril. Objective Vital Signs Date Time Temp Pulse Resp B/P Pulse Ox O2 Delivery O2 Flow Rate FiO2 05/27/16 14:00 72 05/27/16 12:00 101.4 16 145/64 93 05/27/16 11:59 40 05/23/16 23:57 Ventilator Intake and Output 05/26/16 05/26/16 05/27/16 08:00 16:00 00:00 Intake Total 1139 ml 1258 ml 898 ml Output Total 400 ml 400 ml 900 ml Balance 739 ml 858 ml -2 ml Result Diagram: 05/26/16 0430 05/27/16 0347 Imaging Last Impressions Head CT 05/25/16 0600 Signed Impressions: Service Date/Time: Wednesday, May 25, 2016 04:12 - CONCLUSION: Large evolving brainstem hemorrhage with obstruction of the fourth ventricle. Ventricular size has increased from previous study. Mike Glasgow MD Chest X-Ray 05/25/16 0000 Signed Impressions: Service Date/Time: Wednesday, May 25, 2016 04:33 - CONCLUSION: Lungs are clear. Mike Glasgow MD Renal Ultrasound 05/24/16 0000 Signed Impressions: Service Date/Time: Tuesday, May 24, 2016 09:29 - CONCLUSION: Negative for mass or hydronephrosis. Diaz Quigley MD FACR Head CTA 05/24/16 0000 Signed Impressions: Service Date/Time: Tuesday, May 24, 2016 01:39 - CONCLUSION: Normal CTA of the [place]. Luis A Glasgow MD Objective Remarks GENERAL: 51-year-old male, well nourished and well-developed currently orotracheally intubated. SKIN: Warm and dry. No rash HEAD: . Normocephalic. EYES: Pupils are around 2-3 mm bilaterally and reactive. No scleral icterus. ENT: No nasal bleeding or discharge. Mucous membranes pink and moist. NG tube in left nares NECK: Trachea midline. No thyromegaly or lymphadenopathy. Left IJ clean dry and intact CARDIOVASCULAR: RRR. S1, S2. No S4. Without murmur, clicks, gallops or rubs RESPIRATORY: Diminished breath sounds throughout all lung worley. Few crackles appreciated right greater than left lower lobe GASTROINTESTINAL: Abdomen soft, non-tender, nondistended. Hypoactive bowel sounds : Archuleta in place. No scrotal edema MUSCULOSKELETAL: Extremities without significant peripheral edema. No obvious deformities. NEUROLOGICAL: No gaze deviation. Corneal reflexes are intact. Positive gag. . Extensor in bilateral lower extremities. No response to Babinski upward or downward. Date of Insertion: May 24, 2016 Line: Central Venous Catheter Side: Left Location: Internal, Jugular A/P Problem List: (1) Acute respiratory failure with hypoxia and hypercarbia ICD Code: J96.01 Status: Acute (2) Nontraumatic brainstem hemorrhage ICD Code: I61.3 Status: Acute (3) Poorly controlled blood pressure ICD Code: I99.8 Status: Chronic (4) Lactic acidemia ICD Code: E87.2 Status: Acute (5) CKD (chronic kidney disease) stage 3, GFR 30-59 ml/min ICD Code: N18.3 Status: Chronic (6) Tobacco abuse ICD Code: Z72.0 Status: Chronic (7) Aspiration pneumonia ICD Code: J69.0 Status: Acute (8) Marijuana abuse ICD Code: F12.10 Status: Chronic (9) Hyperglycemia ICD Code: R73.9 Status: Acute (10) Malignant hypertension ICD Code: I10 Status: Acute (11) Reactive airway disease ICD Code: J45.909 Status: Chronic Assessment and Plan NEURO/Psych: Acute brainstem hemorrhage (ruiz and mesencephalon 3.5 cm) likely hypertensive I had a long telephone discussion with patient's sister who contacted all reactives and they understand extremely poor neurological outcome. They all agreed with no escalation of care, no resuscitation and comfort care only. Two sisters are working on arrangement to come and be present when the ventilator support should be discontinued. At a mean time we will continue current medical management as bellow: Continuing ventilatory support Ventriculostomy and other invasive measures will be held in accordance with the family wishes. Patient and terminal condition Currently on propofol at 35 mcg/kg per minute/fentanyl 100 g an hour drips for sedation/analgesia while intubated No sedation vacation Keppra 500 mg IV q12 hours for seizure prophylaxis 7 days Acetaminophen/cooling blanket as needed for temp >100.4 D/C 3% hypertonic saline Acute respiratory failure - multifactorial secondary to Reactive airway disease Aspiration pneumonia Tobaccoism PRVC 18/compatible around 550/inspiratory time 1//40 Ventilator bundle. DuoNeb every 6 hours. Albuterol every 2 hours when necessary. CV: Malignant hypertension Continue Nicardipine gtt GI: FEN/RENAL: Chronic kidney disease stage III - resolved Hypopotassemia Hypophosphatemia Hypo-magnesium Archuleta in place. Monitor intake and output. Monitor electrolytes and replace clinically as indicated. ID: Aspiration pneumonia Received Cefepime and azithromycin in the ED. Day #4 Unasyn to cover community acquired organisms/anaerobes. HEME: Normocytic anemia Thrombocytopenia Monitor CBC follow trends. ENDO: Acute hyperglycemia without known history of diabetes. likely stress reaction Low-dose insulin sliding scale at bedside glucose every 6 hours Access - Left IJ CVL day #2 Prophylaxis - GI -Protonix - DVT - SCD/pharmacological prophylaxis contraindicated status post intracerebral hemorrhage Level 1 Problem Qualifiers (1) Aspiration pneumonia: Qualified Code: J69.0 - Aspiration pneumonia, unspecified aspiration pneumonia type, unspecified laterality, unspecified part of lung (2) Reactive airway disease: Qualified Code: J45.909 - Reactive airway disease, unspecified asthma severity , uncomplicated David Kamara MD May 27, 2016 15:42
--- NOTE | 2016-05-27 20:56 | HHI.NSPN ---
History Interval History Patient found unresponsive at home. Initial CT scan with extensive brainstem intracranial hemorrhage. 05/25/16: Remains unresponsive. Continuing ventilatory support. Findings discussed with family on telephone and they are making decision regarding care. Follow-up CT scan with moderate increased ventricular enlargement. Family indicates no invasive procedures including ventriculostomy until further family conference and decision making. 05/26/16: Remains unresponsive. Family has indicated NO CODE STATUS with no invasive procedures, comfort measures only. Exam Results Vital Signs Date Time Temp Pulse Resp B/P Pulse Ox O2 Delivery O2 Flow Rate FiO2 05/27/16 20:00 58 05/27/16 20:00 99.3 16 152/78 100 05/27/16 19:51 40 05/23/16 23:57 Ventilator Intake and Output 05/26/16 05/26/16 05/27/16 08:00 16:00 00:00 Intake Total 1139 ml 1258 ml 898 ml Output Total 400 ml 400 ml 900 ml Balance 739 ml 858 ml -2 ml Physical Examination Remains intubated. Low-dose intravenous sedation-propofol 10 mics and fentanyl Pupils 2 mm nonreactive With sedation decreased: no eye opening spontaneous to voice or to deep pain Absent corneal and oculocephalic responses Minimal cough with suctioning No response to deep pain all extremities Respirations clear Cardiac regular without murmur Abdomen soft No significant extremity edema Lab, Micro, Other Results Laboratory Tests Test 05/27/16 05/27/16 05/27/16 05/27/16 00:19 03:47 14:30 17:55 Sodium Level 149 MEQ/L 149 MEQ/L 146 MEQ/L 148 MEQ/L Serum Osmolality 305 MOSM/KG 308 MOSM/KG Medical Decision Making Impression and Plan Impression: 1. Severe brainstem and intracranial hemorrhage. Patient remains comatose. Plan: I had a long discussion with the patient's sister on the telephone 05/25/16 in the presence of the nursing staff The CT scan findings were discussed. The patient's family has decided today that they do not desire any invasive treatment including ventriculostomy. They request comfort measures only. Patient is DO NOT RESUSCITATE status. Discussed with nursing staff again today Continuing ventilatory support Ventriculostomy and other invasive measures will be held in accordance with the family wishes. Patient and terminal condition Chavo Potter MD May 27, 2016 20:56
[2016-05-28] VITALS (19 sets, daily range): BP systolic 114–218; BP diastolic 57–110; PULSE 58–89; RESP 16; TEMP 97.5–98.5; O2SAT 98–100
[2016-05-28] MEDS: AMPICILLIN-SULBACTAM INJ 3 GM in SODIUM CHLORIDE 0.9% INJ 100 ML IV SCH ×4 (00:40→18:00)
[2016-05-28] MEDS: fentaNYL DRIP 250 ML IV SCH ×2 (00:40→18:58)
[2016-05-28] MEDS: hydrALAZINE HCL 20 MG/ML VIAL IV PUSH PRN ×4 (03:14→21:20)
[2016-05-28] MEDS: CHLORHEXIDINE GLUCONATE 2 % 1 PACK (2 CLOTHS) TOP SCH (03:14)
[2016-05-28] MEDS: RESP: ALBUTEROL 2.5 MG/IPRATROPIUM 0.5 MG NEB (SCH) NEB (03:36)
[2016-05-28] MEDS: RIFAXIMIN 200 MG TAB PO SCH ×3 (05:07→20:28)
--- NOTE | 2016-05-28 08:01 | HHI.CCPN ---
Subjective Remarks/Hospital Course 51 yo WM with PMH of poorly controlled HTN, CKD stage III, reactive airway disease, tobacco abuse who presents to [facility] via [facility] after he was found unresponsive in his bedroom. He and his 2 year old son were in a room with the door locked and the 2 year old began crying and there was no response from patient, so the patient's roommate called the landlord to unlock the door. Upon entry, the roommate found him face down, unresponsive, with gurgling respirations. When [facility] arrived he was intubated at the scene following administration of Ativan 4 mg IV and etomidate 40 mg IV. His pupils were pinpoint and he had marijuana and associated paraphernalia in the room so overdose with contemplated and he was given Narcan 0.8 mg IV without response. Workup in the ED demonstrated large 3.5 cm hemorrhage of ruiz and midbrain with effacement of the 4th ventricle. Neurosurgery was consulted, Dr. Potter, who indicated that this was a devastating hemorrhage with poor prognosis, not amenable to intervention. He is hypertensive with BP 176/86 and has been started on cardene. Coags are normal. Likely represents hypertensive bleed as patient previously had blood pressure 230/143 during a prior ED visit in January 2016. He was supposed to be on HCTZ and lisinopril. Objective Vital Signs Date Time Temp Pulse Resp B/P Pulse Ox O2 Delivery O2 Flow Rate FiO2 05/28/16 06:00 74 05/28/16 04:04 98 40 05/28/16 04:00 98.3 16 159/72 Intake and Output 05/27/16 05/27/16 05/28/16 08:00 16:00 00:00 Intake Total 539 ml 1200 ml 725 ml Output Total 350 ml 1175 ml 2150 ml Balance 189 ml 25 ml -1425 ml Result Diagram: 05/26/16 0430 05/28/16 0649 Imaging Last Impressions Head CT 05/25/16 0600 Signed Impressions: Service Date/Time: Wednesday, May 25, 2016 04:12 - CONCLUSION: Large evolving brainstem hemorrhage with obstruction of the fourth ventricle. Ventricular size has increased from previous study. Mike Glasgow MD Chest X-Ray 05/25/16 0000 Signed Impressions: Service Date/Time: Wednesday, May 25, 2016 04:33 - CONCLUSION: Lungs are clear. Mike Glasgow MD Renal Ultrasound 05/24/16 0000 Signed Impressions: Service Date/Time: Tuesday, May 24, 2016 09:29 - CONCLUSION: Negative for mass or hydronephrosis. Diaz Quigley MD FACR Head CTA 05/24/16 0000 Signed Impressions: Service Date/Time: Tuesday, May 24, 2016 01:39 - CONCLUSION: Normal CTA of the [place]. Luis A Glasgow MD Objective Remarks GENERAL: 51-year-old male, well nourished and well-developed currently orotracheally intubated. SKIN: Warm and dry. No rash HEAD: . Normocephalic. EYES: Pupils are around 2-3 mm bilaterally and reactive. No scleral icterus. ENT: No nasal bleeding or discharge. Mucous membranes pink and moist. NG tube in left nares NECK: Trachea midline. No thyromegaly or lymphadenopathy. Left IJ clean dry and intact CARDIOVASCULAR: RRR. S1, S2. No S4. Without murmur, clicks, gallops or rubs RESPIRATORY: Diminished breath sounds throughout all lung worley. Few crackles appreciated right greater than left lower lobe GASTROINTESTINAL: Abdomen soft, non-tender, nondistended. Hypoactive bowel sounds : Archuleta in place. No scrotal edema MUSCULOSKELETAL: Extremities without significant peripheral edema. No obvious deformities. NEUROLOGICAL: No gaze deviation. Corneal reflexes are intact. Positive gag. . Extensor in bilateral lower extremities. No response to Babinski upward or downward. Date of Insertion: May 24, 2016 Line: Central Venous Catheter Side: Left Location: Internal, Jugular A/P Problem List: (1) Acute respiratory failure with hypoxia and hypercarbia ICD Code: J96.01 Status: Acute (2) Nontraumatic brainstem hemorrhage ICD Code: I61.3 Status: Acute (3) Poorly controlled blood pressure ICD Code: I99.8 Status: Chronic (4) Lactic acidemia ICD Code: E87.2 Status: Acute (5) CKD (chronic kidney disease) stage 3, GFR 30-59 ml/min ICD Code: N18.3 Status: Chronic (6) Tobacco abuse ICD Code: Z72.0 Status: Chronic (7) Aspiration pneumonia ICD Code: J69.0 Status: Acute (8) Marijuana abuse ICD Code: F12.10 Status: Chronic (9) Hyperglycemia ICD Code: R73.9 Status: Acute (10) Malignant hypertension ICD Code: I10 Status: Acute (11) Reactive airway disease ICD Code: J45.909 Status: Chronic Assessment and Plan NEURO/Psych: Acute brainstem hemorrhage (ruiz and mesencephalon 3.5 cm) likely hypertensive I had a long telephone discussion with patient's sister who contacted all reactives and they understand extremely poor neurological outcome. They all agreed with no escalation of care, no resuscitation and comfort care only. Two sisters are working on arrangement to come and be present when the ventilator support should be discontinued. At a mean time we will continue current medical management as bellow: Continuing ventilatory support Ventriculostomy and other invasive measures will be held in accordance with the family wishes. Patient with a terminal condition Currently on propofol at 35 mcg/kg per minute/fentanyl 100 g an hour drips for sedation/analgesia for comfort while intubated No sedation vacation Keppra 500 mg IV q12 hours for seizure prophylaxis 7 days Acetaminophen/cooling blanket as needed for temp >100.4 D/C 3% hypertonic saline Acute respiratory failure - multifactorial secondary to Reactive airway disease Aspiration pneumonia Tobaccoism PRVC 18/compatible around 550/inspiratory time 1//40 Ventilator bundle. DuoNeb every 6 hours. Albuterol every 2 hours PRN for wheezing CV: Malignant hypertension Continue Nicardipine gtt SBP goal close to 160 GI: FEN/RENAL: Chronic kidney disease stage III - resolved Hypopotassemia Hypophosphatemia Hypo-magnesium Archuleta in place. Monitor intake and output. Monitor electrolytes and replace clinically as indicated. ID: Aspiration pneumonia Received Cefepime and azithromycin in the ED. Day #7 Unasyn to cover community acquired organisms/anaerobes. HEME: Normocytic anemia Thrombocytopenia Monitor CBC follow trends. ENDO: Acute hyperglycemia without known history of diabetes. likely stress reaction Low-dose insulin sliding scale at bedside glucose every 6 hours Access - Left IJ CVL day #5 Prophylaxis - GI -Protonix - DVT - SCD/pharmacological prophylaxis contraindicated status post intracerebral hemorrhage Level 1 Problem Qualifiers (1) Aspiration pneumonia: Qualified Code: J69.0 - Aspiration pneumonia, unspecified aspiration pneumonia type, unspecified laterality, unspecified part of lung (2) Reactive airway disease: Qualified Code: J45.909 - Reactive airway disease, unspecified asthma severity , uncomplicated David Kamara MD May 28, 2016 08:01
[2016-05-28] MEDS: FOLIC ACID 1 MG TAB PO SCH (08:26)
[2016-05-28] MEDS: CHLORHEXIDINE 0.12% (ORAL KIT) 15 ML CUP MT SCH ×2 (08:26→21:19)
[2016-05-28] MEDS: THIAMINE INJ 100 MG in SODIUM CHLORIDE 0.9% INJ 100 ML IV SCH (08:26)
[2016-05-28] MEDS: DOCUSATE SODIUM 100 MG/10 ML UDC PO SCH ×2 (08:26→21:00)
[2016-05-28] MEDS: LACTULOSE SYRUP 20 GM/30 ML CUP PO SCH ×2 (08:26→21:00)
[2016-05-28] MEDS: SENNOSIDES SYRUP 8.8 MG/5 ML CUP TUBE SCH ×2 (08:27→21:00)
[2016-05-28] MEDS: PANTOPRAZOLE SODIUM 40 MG VIAL IV SCH (08:27)
[2016-05-28] MEDS: POLYETHYLENE GLYCOL 17 GM PKG PO SCH (09:00)
[2016-05-28] MEDS: SODIUM CHLORIDE 0.9% FLUSH 5 ML FLUSH IVF SCH (09:00)
[2016-05-28] MEDS: MULTIVITAMIN TAB PO SCH (09:00)
[2016-05-28] MEDS: SODIUM CHLOR 0.9% 1000 ML INJ 1,000 ML IV SCH (15:07)
--- NOTE | 2016-05-28 18:11 | HHI.NSPN ---
History Interval History Patient found unresponsive at home. Initial CT scan with extensive brainstem intracranial hemorrhage. 05/25/16: Remains unresponsive. Continuing ventilatory support. Findings discussed with family on telephone and they are making decision regarding care. Follow-up CT scan with moderate increased ventricular enlargement. Family indicates no invasive procedures including ventriculostomy until further family conference and decision making. 05/26/16: Remains unresponsive. Family has indicated NO CODE STATUS with no invasive procedures, comfort measures only. Exam Results Vital Signs Date Time Temp Pulse Resp B/P Pulse Ox O2 Delivery O2 Flow Rate FiO2 05/28/16 16:00 64 05/28/16 16:00 97.5 16 147/77 99 05/28/16 15:28 40 Intake and Output 05/27/16 05/27/16 05/28/16 08:00 16:00 00:00 Intake Total 539 ml 1200 ml 725 ml Output Total 350 ml 1175 ml 2150 ml Balance 189 ml 25 ml -1425 ml Physical Examination Remains intubated. Low-dose intravenous sedation Pupils 2 mm nonreactive With sedation decreased: no eye opening spontaneous to voice or to deep pain Absent corneal and oculocephalic responses Absent cough with suctioning No response to deep pain all extremities Respirations clear Cardiac regular without murmur Abdomen soft No significant extremity edema Medical Decision Making Impression and Plan Impression: 1. Severe brainstem and intracranial hemorrhage. Patient remains comatose. Plan: Discussed with nursing staff today. They indicate that the patient's family has not yet decided when and if they will come to the hospital from out of state. Nursing staff indicates a discussion with the family today confirms there decision against any invasive treatment and they desire supportive care and comfort measures only at this time. Continuing ventilatory support Ventriculostomy and other invasive measures will be held in accordance with the family wishes. Patient is in terminal condition Chavo Potter MD May 28, 2016 18:11
[2016-05-28] MEDS: PROPOFOL 1000 MG/100 ML INJ 100 ML IV SCH (20:28)
[2016-05-28] MEDS: niCARdipine INJ 25 MG in SODIUM CHLOR 0.9% 250 ML INJ 250 ML IV SCH (21:20)
[2016-05-29] VITALS (19 sets, daily range): BP systolic 133–155; BP diastolic 37–90; PULSE 64–92; RESP 16–23; TEMP 98–100.9; O2SAT 97–100
[2016-05-29] MEDS: AMPICILLIN-SULBACTAM INJ 3 GM in SODIUM CHLORIDE 0.9% INJ 100 ML IV SCH ×4 (00:31→16:51)
[2016-05-29] MEDS: niCARdipine INJ 25 MG in SODIUM CHLOR 0.9% 250 ML INJ 250 ML IV SCH ×6 (00:32→13:13)
[2016-05-29] MEDS: CHLORHEXIDINE GLUCONATE 2 % 1 PACK (2 CLOTHS) TOP SCH (04:00)
[2016-05-29] MEDS: RIFAXIMIN 200 MG TAB PO SCH ×3 (04:13→20:54)
[2016-05-29] MEDS: fentaNYL DRIP 250 ML IV SCH ×2 (04:15→14:14)
[2016-05-29] MEDS: LORazepam 2 MG/ML VIAL IV PUSH PRN ×4 (04:25→22:10)
[2016-05-29] MEDS: PANTOPRAZOLE SODIUM 40 MG VIAL IV SCH (08:37)
[2016-05-29] MEDS: CHLORHEXIDINE 0.12% (ORAL KIT) 15 ML CUP MT SCH ×2 (08:37→20:00)
[2016-05-29] MEDS: LACTULOSE SYRUP 20 GM/30 ML CUP PO SCH ×3 (08:38→20:54)
[2016-05-29] MEDS: DOCUSATE SODIUM 100 MG/10 ML UDC PO SCH ×3 (08:38→20:54)
[2016-05-29] MEDS: SODIUM CHLORIDE 0.9% FLUSH 5 ML FLUSH IVF SCH (08:38)
[2016-05-29] MEDS: SENNOSIDES SYRUP 8.8 MG/5 ML CUP TUBE SCH ×3 (08:39→21:00)
[2016-05-29] MEDS: FOLIC ACID 1 MG TAB PO SCH (08:39)
[2016-05-29] MEDS: MULTIVITAMIN TAB PO SCH (08:40)
[2016-05-29] MEDS: THIAMINE INJ 100 MG in SODIUM CHLORIDE 0.9% INJ 100 ML IV SCH (08:45)
[2016-05-29] MEDS: POLYETHYLENE GLYCOL 17 GM PKG PO SCH (08:45)
--- NOTE | 2016-05-29 09:41 | HHI.CCPN ---
Subjective Remarks/Hospital Course 51 yo WM with PMH of poorly controlled HTN, CKD stage III, reactive airway disease, tobacco abuse who presents to [facility] via [facility] after he was found unresponsive in his bedroom. He and his 2 year old son were in a room with the door locked and the 2 year old began crying and there was no response from patient, so the patient's roommate called the landlord to unlock the door. Upon entry, the roommate found him face down, unresponsive, with gurgling respirations. When [facility] arrived he was intubated at the scene following administration of Ativan 4 mg IV and etomidate 40 mg IV. His pupils were pinpoint and he had marijuana and associated paraphernalia in the room so overdose with contemplated and he was given Narcan 0.8 mg IV without response. Workup in the ED demonstrated large 3.5 cm hemorrhage of ruiz and midbrain with effacement of the 4th ventricle. Neurosurgery was consulted, Dr. Potter, who indicated that this was a devastating hemorrhage with poor prognosis, not amenable to intervention. He is hypertensive with BP 176/86 and has been started on cardene. Coags are normal. Likely represents hypertensive bleed as patient previously had blood pressure 230/143 during a prior ED visit in January 2016. He was supposed to be on HCTZ and lisinopril. Objective Vital Signs Date Time Temp Pulse Resp B/P Pulse Ox O2 Delivery O2 Flow Rate FiO2 05/29/16 08:00 79 05/29/16 08:00 98.1 16 149/90 100 05/29/16 04:01 40 Intake and Output 05/28/16 05/28/16 05/28/16 07:59 15:59 23:59 Intake Total 599 ml 777 ml 753 ml Output Total 2100 ml 750 ml 900 ml Balance -1501 ml 27 ml -147 ml Result Diagram: 05/26/16 0430 05/28/16 0649 Imaging Last Impressions Head CT 05/25/16 0600 Signed Impressions: Service Date/Time: Wednesday, May 25, 2016 04:12 - CONCLUSION: Large evolving brainstem hemorrhage with obstruction of the fourth ventricle. Ventricular size has increased from previous study. Mike Glasgow MD Chest X-Ray 05/25/16 0000 Signed Impressions: Service Date/Time: Wednesday, May 25, 2016 04:33 - CONCLUSION: Lungs are clear. Mike Glasgow MD Renal Ultrasound 05/24/16 0000 Signed Impressions: Service Date/Time: Tuesday, May 24, 2016 09:29 - CONCLUSION: Negative for mass or hydronephrosis. Diaz Quigley MD FACR Head CTA 05/24/16 0000 Signed Impressions: Service Date/Time: Tuesday, May 24, 2016 01:39 - CONCLUSION: Normal CTA of the [place]. Luis A Glasgow MD Objective Remarks GENERAL: 51-year-old male, well nourished and well-developed currently orotracheally intubated. SKIN: Warm and dry. No rash HEAD: . Normocephalic. EYES: Pupils are around 2-3 mm bilaterally and reactive. No scleral icterus. ENT: No nasal bleeding or discharge. Mucous membranes pink and moist. NG tube in left nares NECK: Trachea midline. No thyromegaly or lymphadenopathy. Left IJ clean dry and intact CARDIOVASCULAR: RRR. S1, S2. No S4. Without murmur, clicks, gallops or rubs RESPIRATORY: Diminished breath sounds throughout all lung worley. Few crackles appreciated right greater than left lower lobe GASTROINTESTINAL: Abdomen soft, non-tender, nondistended. Hypoactive bowel sounds : Archuleta in place. No scrotal edema MUSCULOSKELETAL: Extremities without significant peripheral edema. No obvious deformities. NEUROLOGICAL: No gaze deviation. Corneal reflexes are intact. Positive gag. . Extensor in bilateral lower extremities. No response to Babinski upward or downward. Date of Insertion: May 24, 2016 Line: Central Venous Catheter Side: Left Location: Internal, Jugular A/P Problem List: (1) Acute respiratory failure with hypoxia and hypercarbia ICD Code: J96.01 Status: Acute (2) Nontraumatic brainstem hemorrhage ICD Code: I61.3 Status: Acute (3) Poorly controlled blood pressure ICD Code: I99.8 Status: Chronic (4) Lactic acidemia ICD Code: E87.2 Status: Acute (5) CKD (chronic kidney disease) stage 3, GFR 30-59 ml/min ICD Code: N18.3 Status: Chronic (6) Tobacco abuse ICD Code: Z72.0 Status: Chronic (7) Aspiration pneumonia ICD Code: J69.0 Status: Acute (8) Marijuana abuse ICD Code: F12.10 Status: Chronic (9) Hyperglycemia ICD Code: R73.9 Status: Acute (10) Malignant hypertension ICD Code: I10 Status: Acute (11) Reactive airway disease ICD Code: J45.909 Status: Chronic Assessment and Plan NEURO/Psych: Acute brainstem hemorrhage (ruiz and mesencephalon 3.5 cm) likely hypertensive I had a long telephone discussion with patient's sister who contacted all reactives and they understand extremely poor neurological outcome. They all agreed with no escalation of care, no resuscitation and comfort care only. Two sisters are working on arrangement to come and be present when the ventilator support should be discontinued. At a mean time we will continue current medical management as bellow: Continuing ventilatory support until family presents for comfort care only Ventriculostomy and other invasive measures will be held in accordance with the family wishes. Patient with a terminal condition and no meaningful recovery Continue propofol at 35 mcg/kg per minute/fentanyl 100 g an hour drips for sedation/analgesia for comfort while intubated No sedation vacation Keppra 500 mg IV q12 hours for seizure prophylaxis 7 days Acetaminophen/cooling blanket as needed for temp >100.4 D/C 3% hypertonic saline Acute respiratory failure - multifactorial secondary to Reactive airway disease Aspiration pneumonia Tobaccoism PRVC 18/compatible around 550/inspiratory time 1/5/40 Ventilator bundle. DuoNeb every 6 hours. Albuterol every 2 hours PRN for wheezing Malignant hypertension Continue Nicardipine gtt SBP goal close to 160 Chronic kidney disease stage III - resolved Continue Archuleta in place. Monitor intake and output. Monitor electrolytes and replace clinically as indicated. Aspiration pneumonia Received Cefepime and azithromycin in the ED. Day #9Unasyn to cover community acquired organisms/anaerobes - completed Rx - will D/C HEME: Normocytic anemia Thrombocytopenia Monitor CBC follow trends. ENDO: Acute hyperglycemia without known history of diabetes. likely stress reaction Low-dose insulin sliding scale at bedside glucose every 6 hours Access - Left IJ CVL day #5 Prophylaxis - GI -Protonix - DVT - SCD/pharmacological prophylaxis contraindicated status post intracerebral hemorrhage Level 1 Problem Qualifiers (1) Aspiration pneumonia: Qualified Code: J69.0 - Aspiration pneumonia, unspecified aspiration pneumonia type, unspecified laterality, unspecified part of lung (2) Reactive airway disease: Qualified Code: J45.909 - Reactive airway disease, unspecified asthma severity , uncomplicated David Kamara MD May 29, 2016 09:41
[2016-05-29] MEDS: SODIUM CHLOR 0.9% 1000 ML INJ 1,000 ML IV SCH (14:14)
[2016-05-29 16:58] LABS: ALT (GPT) 18 U/L (12-78); ANION GAP 14 MEQ/L (5-15); AST (GOT) 21 U/L (15-37); BICARBONATE 17.3 MEQ/L (21.0-32.0); BLOOD UREA NITROGEN 7 MG/DL (7-18); CHLORIDE 110 MEQ/L (98-107); GLOMERULAR FILTRATION RATE 136 ML/MIN (>89); SODIUM (NA) 141 MEQ/L (136-145)
[2016-05-29 17:04] LABS: ALKALINE PHOSPHATASE 259 U/L (45-117)
[2016-05-29 17:19] LABS: AUTOMATED NEUTROPHIL # 5.9 TH/MM3 (1.8-7.7); BASOPHIL % 0.4 % (0.0-2.0); EOSINOPHIL # 0.3 TH/MM3 (0-0.4); EOSINOPHIL % 4.4 % (0.0-4.0); HEMATOCRIT 28.8 % (39.0-51.0); HEMO FLAGS DIFF FINAL; LYMPHOCYTE # 0.5 TH/MM3 (1.0-4.8); MEAN CELL VOLUME 83.6 FL (80.0-100.0); MEAN CORPUSCULAR HEMOGLOBIN 28.3 PG (27.0-34.0); MEAN CORPUSCULAR HGB CONC 33.9 % (32.0-36.0); MONO % 10.1 % (0.0-8.0); NEUT % 78.1 % (16.0-70.0); PLATELET COUNT 129 TH/MM3 (150-450); RED BLOOD COUNT 3.44 MIL/MM3 (4.50-5.90); RED CELL DISTRIBUTION WIDTH 21.2 % (11.6-17.2); WHITE BLOOD COUNT 7.5 TH/MM3 (4.0-11.0)
--- NOTE | 2016-05-29 19:28 | HHI.NSPN ---
History Interval History Patient found unresponsive at home. Initial CT scan with extensive brainstem intracranial hemorrhage. 05/25/16: Remains unresponsive. Continuing ventilatory support. Findings discussed with family on telephone and they are making decision regarding care. Follow-up CT scan with moderate increased ventricular enlargement. Family indicates no invasive procedures including ventriculostomy until further family conference and decision making. 05/26/16: Remains unresponsive. Family has indicated NO CODE STATUS with no invasive procedures, comfort measures only. Exam Results Vital Signs Date Time Temp Pulse Resp B/P Pulse Ox O2 Delivery O2 Flow Rate FiO2 05/29/16 18:00 89 05/29/16 16:00 99.3 22 142/37 100 05/29/16 15:59 40 05/29/16 09:00 Nasal Cannula 4 Intake and Output 05/28/16 05/28/16 05/28/16 07:59 15:59 23:59 Intake Total 599 ml 777 ml 753 ml Output Total 2100 ml 750 ml 900 ml Balance -1501 ml 27 ml -147 ml Physical Examination Remains intubated. Low-dose intravenous sedation Pupils 2 mm nonreactive With sedation decreased: no eye opening spontaneous to voice or to deep pain Absent corneal and oculocephalic responses Absent cough with suctioning No response to deep pain all extremities. Limited spinal reflex response in lower extremities with rapid extinction. Respirations clear Cardiac regular without murmur Abdomen soft No significant extremity edema Lab, Micro, Other Results Laboratory Tests Test 05/29/16 16:23 White Blood Count 7.5 TH/MM3 Red Blood Count 3.44 MIL/MM3 Hemoglobin 9.8 GM/DL Hematocrit 28.8 % Mean Corpuscular Volume 83.6 FL Mean Corpuscular Hemoglobin 28.3 PG Mean Corpuscular Hemoglobin 33.9 % Concent Red Cell Distribution Width 21.2 % Platelet Count 129 TH/MM3 Mean Platelet Volume 9.3 FL Neutrophils (%) (Auto) 78.1 % Lymphocytes (%) (Auto) 7.0 % Monocytes (%) (Auto) 10.1 % Eosinophils (%) (Auto) 4.4 % Basophils (%) (Auto) 0.4 % Neutrophils # (Auto) 5.9 TH/MM3 Lymphocytes # (Auto) 0.5 TH/MM3 Monocytes # (Auto) 0.8 TH/MM3 Eosinophils # (Auto) 0.3 TH/MM3 Basophils # (Auto) 0.0 TH/MM3 CBC Comment DIFF FINAL Differential Comment Sodium Level 141 MEQ/L Potassium Level 3.0 MEQ/L Chloride Level 110 MEQ/L Carbon Dioxide Level 17.3 MEQ/L Anion Gap 14 MEQ/L Blood Urea Nitrogen 7 MG/DL Creatinine 0.62 MG/DL Estimat Glomerular Filtration 136 ML/MIN Rate Random Glucose 68 MG/DL Calcium Level 8.3 MG/DL Total Bilirubin 1.0 MG/DL Aspartate Amino Transf 21 U/L (AST/SGOT) Alanine Aminotransferase 18 U/L (ALT/SGPT) Alkaline Phosphatase 259 U/L Total Protein 5.7 GM/DL Albumin 2.1 GM/DL Medical Decision Making Impression and Plan Impression: 1. Severe brainstem and intracranial hemorrhage. Patient remains comatose. Plan: Discussed with nursing staff today. They indicate that the family has elected to withdraw from ventilatory support. However still attempting to contact all non-family members to make certain that there is agreement for this decision. Continuing ventilatory support Ventriculostomy and other invasive measures will be held in accordance with the family wishes. Patient is in terminal condition Chavo Potter MD May 29, 2016 19:28
[2016-05-29] MEDS ORDERED: SODIUM CHLOR 0.9% 250 ML INJ 250 ML ONE (20:50)
[2016-05-29] MEDS: hydrALAZINE HCL 20 MG/ML VIAL IV PUSH PRN (22:11)
[2016-05-30] VITALS (18 sets, daily range): BP systolic 107–146; BP diastolic 47–68; PULSE 69–125; RESP 16–25; TEMP 97.7–100.6; O2SAT 98–100
[2016-05-30] MEDS: AMPICILLIN-SULBACTAM INJ 3 GM in SODIUM CHLORIDE 0.9% INJ 100 ML IV SCH ×4 (00:09→17:58)
[2016-05-30] MEDS: niCARdipine INJ 25 MG in SODIUM CHLOR 0.9% 250 ML INJ 250 ML IV SCH ×3 (00:11→17:58)
[2016-05-30 01:58] LABS: AUTOMATED NEUTROPHIL # 4.7 TH/MM3 (1.8-7.7); BASOPHIL % 0.5 % (0.0-2.0); EOSINOPHIL # 0.3 TH/MM3 (0-0.4); HEMATOCRIT 27.8 % (39.0-51.0); HEMO FLAGS DIFF FINAL; LYMPH % 8.5 % (9.0-44.0); LYMPHOCYTE # 0.5 TH/MM3 (1.0-4.8); MEAN CELL VOLUME 83.9 FL (80.0-100.0); MEAN CORPUSCULAR HEMOGLOBIN 27.8 PG (27.0-34.0); MEAN CORPUSCULAR HGB CONC 33.2 % (32.0-36.0); MONO % 12.5 % (0.0-8.0); NEUT % 73.5 % (16.0-70.0); PLATELET COUNT 127 TH/MM3 (150-450); RED BLOOD COUNT 3.31 MIL/MM3 (4.50-5.90); RED CELL DISTRIBUTION WIDTH 20.8 % (11.6-17.2); WHITE BLOOD COUNT 6.5 TH/MM3 (4.0-11.0)
[2016-05-30 02:02] LABS: PROTHROMBIN TIME - PATIENT 11.3 SEC (9.8-11.6)
[2016-05-30 02:16] LABS: BLOOD, URINE NEG (NEG); GLUCOSE,URINE NEG (NEG); HYALINE CAST, URINE 1 /lpf (RARE); KETONE, URINE 150 mg/dL (NEG); MUCUS URINE FEW /lpf (OCC); NITRITE,URINE NEG (NEG); SQUAMOUS EPITHELIAL CELL URINE <1 /hpf (0-5); URINE COLOR YELLOW (YELLW/STRAW)
[2016-05-30 02:20] LABS: ALKALINE PHOSPHATASE 256 U/L (45-117); ALT (GPT) 17 U/L (12-78); AMYLASE 53 U/L (25-115); ANION GAP 17 MEQ/L (5-15); AST (GOT) 19 U/L (15-37); BICARBONATE 15.3 MEQ/L (21.0-32.0); BLOOD UREA NITROGEN 9 MG/DL (7-18); CHLORIDE 110 MEQ/L (98-107); GAMMA GT 411 U/L (15-85); GLOMERULAR FILTRATION RATE 117 ML/MIN (>89); SODIUM (NA) 142 MEQ/L (136-145); TOTAL BILIRUBIN ADULT 0.7 MG/DL (0.2-1.0)
[2016-05-30 02:23] LABS: POTASSIUM 2.7 MEQ/L (3.5-5.1)
[2016-05-30 02:37] LABS: COMMENT (UR) CATH-CULT NOT IND; CULTURE IF INDICATED CATH CULTURE NOT IND
--- NOTE | 2016-05-30 03:18 | PD.PROCEDR ---
Procedure Note Procedure DX: Intracranial Hemorrhage OP: Insertion Right Radial Artery Line ([id number]) Procedure: Brad test intact right hand. Right hand supinated, prepped and draped. Right radial artery cannulated with 20 gauge needle and cannula easily advanced. Good waveform observed. Dressing applied. Circulation to right hand intact after procedure. Ryan Patton MD May 30, 2016 03:18
[2016-05-30] MEDS: CHLORHEXIDINE GLUCONATE 2 % 1 PACK (2 CLOTHS) TOP SCH (04:00)
[2016-05-30] MEDS: fentaNYL DRIP 250 ML IV SCH ×2 (04:28→22:56)
[2016-05-30] MEDS: POTASSIUM CHLOR 40 MEQ PREMIX 100 ML IV PRN ×2 (06:00→07:43)
[2016-05-30] MEDS: RIFAXIMIN 200 MG TAB PO SCH ×2 (06:00→13:51)
[2016-05-30] MEDS: THIAMINE INJ 100 MG in SODIUM CHLORIDE 0.9% INJ 100 ML IV SCH (07:29)
[2016-05-30] MEDS: MULTIVITAMIN TAB PO SCH (07:30)
[2016-05-30] MEDS: PANTOPRAZOLE SODIUM 40 MG VIAL IV SCH (07:30)
[2016-05-30] MEDS: CHLORHEXIDINE 0.12% (ORAL KIT) 15 ML CUP MT SCH ×2 (07:31→20:00)
[2016-05-30] MEDS: DOCUSATE SODIUM 100 MG/10 ML UDC PO SCH (07:31)
[2016-05-30] MEDS: LACTULOSE SYRUP 20 GM/30 ML CUP PO SCH (07:31)
[2016-05-30] MEDS: POLYETHYLENE GLYCOL 17 GM PKG PO SCH (07:31)
[2016-05-30] MEDS: SODIUM CHLORIDE 0.9% FLUSH 5 ML FLUSH IVF SCH (07:31)
[2016-05-30] MEDS: FOLIC ACID 1 MG TAB PO SCH (07:31)
[2016-05-30] MEDS: SENNOSIDES SYRUP 8.8 MG/5 ML CUP TUBE SCH (07:32)
--- NOTE | 2016-05-30 08:10 | HHI.NSPN ---
(Mike Monroe) History Chief Complaint: Brainstem CVA (Mike Monroe) Interval History Patient found unresponsive at home. Initial CT scan with extensive brainstem intracranial hemorrhage. 05/25/16: Remains unresponsive. Continuing ventilatory support. Findings discussed with family on telephone and they are making decision regarding care. Follow-up CT scan with moderate increased ventricular enlargement. Family indicates no invasive procedures including ventriculostomy until further family conference and decision making. 05/26/16: Remains unresponsive. Family has indicated NO CODE STATUS with no invasive procedures, comfort measures only. 05/30/16: Pt Not opening eyes. Not following commands. Pupils 3mm bilaterally slight reaction bilaterally. (Mike Monroe) System Review Comments Not able to obtain given clinical condition. (Mike Monroe) Exam Results Vital Signs Date Time Temp Pulse Resp B/P Pulse Ox O2 Delivery O2 Flow Rate FiO2 05/30/16 06:00 90 05/30/16 04:05 100 40 05/30/16 04:00 98.9 25 107/47 05/29/16 09:00 Nasal Cannula 4 Intake and Output 05/29/16 05/29/16 05/30/16 08:00 16:00 00:00 Intake Total 1209 ml 1295 ml 1378 ml Output Total 1000 ml 1175 ml 1800 ml Balance 209 ml 120 ml -422 ml (Mike Monroe) Physical Examination Remains intubated. Low-dose intravenous sedation Pupils 2 mm nonreactive With sedation decreased: no eye opening spontaneous to voice or to deep pain Absent corneal and oculocephalic responses Absent cough with suctioning No response to deep pain all extremities. Limited spinal reflex response in lower extremities with rapid extinction. Respirations clear Cardiac regular without murmur Abdomen soft No significant extremity edema (Mike Monroe) Lab, Micro, Other Results Last Impressions Head CT 05/25/16 0600 Signed Impressions: Service Date/Time: Wednesday, May 25, 2016 04:12 - CONCLUSION: Large evolving brainstem hemorrhage with obstruction of the fourth ventricle. Ventricular size has increased from previous study. Mike Glasgow MD Neck Magnetic Resonance Angiography 05/25/16 0000 Signed Impressions: Service Date/Time: Wednesday, May 25, 2016 13:53 - CONCLUSION: Normal examination. No evidence of significant atherosclerotic vascular disease or stenosis. Brice Mcgarry MD Chest X-Ray 05/25/16 0000 Signed Impressions: Service Date/Time: Wednesday, May 25, 2016 04:33 - CONCLUSION: Lungs are clear. Mike Glasgow MD Renal Ultrasound 05/24/16 0000 Signed Impressions: Service Date/Time: Tuesday, May 24, 2016 09:29 - CONCLUSION: Negative for mass or hydronephrosis. Diaz Quigley MD FACR Head CTA 05/24/16 0000 Signed Impressions: Service Date/Time: Tuesday, May 24, 2016 01:39 - CONCLUSION: Normal CTA of the [place]. Luis A Glasgow MD Laboratory Tests Test 05/29/16 05/30/16 05/30/16 05/30/16 16:23 01:03 01:04 01:13 White Blood Count 7.5 TH/MM3 6.5 TH/MM3 Red Blood Count 3.44 MIL/MM3 3.31 MIL/MM3 Hemoglobin 9.8 GM/DL 9.2 GM/DL Hematocrit 28.8 % 27.8 % Mean Corpuscular Volume 83.6 FL 83.9 FL Mean Corpuscular Hemoglobin 28.3 PG 27.8 PG Mean Corpuscular Hemoglobin 33.9 % 33.2 % Concent Red Cell Distribution Width 21.2 % 20.8 % Platelet Count 129 TH/MM3 127 TH/MM3 Mean Platelet Volume 9.3 FL 9.1 FL Neutrophils (%) (Auto) 78.1 % 73.5 % Lymphocytes (%) (Auto) 7.0 % 8.5 % Monocytes (%) (Auto) 10.1 % 12.5 % Eosinophils (%) (Auto) 4.4 % 5.0 % Basophils (%) (Auto) 0.4 % 0.5 % Neutrophils # (Auto) 5.9 TH/MM3 4.7 TH/MM3 Lymphocytes # (Auto) 0.5 TH/MM3 0.5 TH/MM3 Monocytes # (Auto) 0.8 TH/MM3 0.8 TH/MM3 Eosinophils # (Auto) 0.3 TH/MM3 0.3 TH/MM3 Basophils # (Auto) 0.0 TH/MM3 0.0 TH/MM3 CBC Comment DIFF FINAL DIFF FINAL Differential Comment Sodium Level 141 MEQ/L 142 MEQ/L Potassium Level 3.0 MEQ/L 2.7 MEQ/L Chloride Level 110 MEQ/L 110 MEQ/L Carbon Dioxide Level 17.3 MEQ/L 15.3 MEQ/L Anion Gap 14 MEQ/L 17 MEQ/L Blood Urea Nitrogen 7 MG/DL 9 MG/DL Creatinine 0.62 MG/DL 0.71 MG/DL Estimat Glomerular Filtration 136 ML/MIN 117 ML/MIN Rate Random Glucose 68 MG/DL 65 MG/DL Calcium Level 8.3 MG/DL 7.9 MG/DL Total Bilirubin 1.0 MG/DL 0.7 MG/DL Aspartate Amino Transf 21 U/L 19 U/L (AST/SGOT) Alanine Aminotransferase 18 U/L 17 U/L (ALT/SGPT) Alkaline Phosphatase 259 U/L 256 U/L Total Protein 5.7 GM/DL 5.5 GM/DL Albumin 2.1 GM/DL 1.9 GM/DL Gamma Glutamyl Transpeptidase 411 U/L Amylase Level 53 U/L Lipase 165 U/L Prothrombin Time 11.3 SEC Prothromb Time International 1.0 RATIO Ratio Activated Partial 38.0 SEC Thromboplast Time Urine Color YELLOW Urine Turbidity CLEAR Urine pH 6.0 Urine Specific [place] 1.023 Urine Protein 30 mg/dL Urine Glucose (UA) NEG mg/dL Urine Ketones 150 mg/dL Urine Occult Blood NEG Urine Nitrite NEG Urine Bilirubin NEG Urine Urobilinogen LESS THAN 2.0 MG/DL Urine Leukocyte Esterase NEG Urine RBC LESS THAN 1 /hpf Urine WBC 1 /hpf Urine Squamous Epithelial <1 /hpf Cells Urine Hyaline Casts 1 /lpf Urine Mucus FEW /lpf Microscopic Urinalysis Comment CATH-CULT NOT IND 05/29/16 05/29/16 05/30/16 15:00 23:00 07:00 Intake Total 1295 ml 1378 ml 720 ml Output Total 1175 ml 1800 ml 275 ml Balance 120 ml -422 ml 445 ml Intake IV Total 1135 ml 1378 ml 720 ml Tube Feeding 0 ml 0 ml 0 ml Other 160 ml Output Urine Total 1075 ml 1800 ml 275 ml Stool Total 100 ml 0 ml 0 ml Gastric Drainage Total 0 ml (Mike Monroe) Medical Decision Making Impression and Plan A: 1. Severe brainstem and intracranial hemorrhage. Patient remains comatose. Plan: RN states that the family has elected to withdraw from ventilatory support. However still attempting to contact all non-family members to make certain that there is agreement for this decision. Continuing ventilatory support Ventriculostomy and other invasive measures will be held in accordance with the family wishes. Patient is in terminal condition (Mike Monroe) Attending Statement The exam, history, and the medical decision-making described in the above note were completed with the assistance of the mid-level provider. I reviewed and agree with the findings presented. I attest that I had a [id number] encounter with the patient on the same day, and personally performed and documented my assessment and findings in the medical record. (Nigel Benitez MD) Mike Monroe May 30, 2016 08:10 Nigel Benitez MD May 30, 2016 11:49
[2016-05-30] MEDS: LORazepam 2 MG/ML VIAL IV PUSH PRN ×2 (08:23→13:55)
[2016-05-30] MEDS: POTASSIUM CHLORIDE INJ 20 MEQ in DEXT 5%-NACL 0.45% 1000 ML INJ 1,000 ML IV SCH ×2 (08:26→18:06)
--- NOTE | 2016-05-30 10:34 | HHI.CCPN ---
Subjective Remarks/Hospital Course 51 yo WM with PMH of poorly controlled HTN, CKD stage III, reactive airway disease, tobacco abuse who presents to [facility] [place] [facility] after he was found unresponsive in his bedroom. He and his 2 year old son were in a room with the door locked and the 2 year old began crying and there was no response from patient, so the patient's roommate called the landlord to unlock the door. Upon entry, the roommate found him face down, unresponsive, with gurgling respirations. When [facility] arrived he was intubated at the scene following administration of Ativan 4 mg IV and etomidate 40 mg IV. His pupils were pinpoint and he had marijuana and associated paraphernalia in the room so overdose with contemplated and he was given Narcan 0.8 mg IV without response. Workup in the ED demonstrated large 3.5 cm hemorrhage of ruiz and midbrain with effacement of the 4th ventricle. Neurosurgery was consulted, Dr. Potter, who indicated that this was a devastating hemorrhage with poor prognosis, not amenable to intervention. He is hypertensive with BP 176/86 and has been started on cardene. Coags are normal. Likely represents hypertensive bleed as patient previously had blood pressure 230/143 during a prior ED visit in January 2016. He was supposed to be on HCTZ and lisinopril. Objective Vital Signs Date Time Temp Pulse Resp B/P Pulse Ox O2 Delivery O2 Flow Rate FiO2 05/30/16 10:00 81 05/30/16 08:13 100 40 05/30/16 08:00 97.7 22 123/67 05/29/16 09:00 Nasal Cannula 4 Intake and Output 05/29/16 05/29/16 05/30/16 08:00 16:00 00:00 Intake Total 1209 ml 1295 ml 1378 ml Output Total 1000 ml 1175 ml 1800 ml Balance 209 ml 120 ml -422 ml Result Diagram: 05/30/16 0103 05/30/16 0103 Imaging Last Impressions Head CT 05/25/16 0600 Signed Impressions: Service Date/Time: Wednesday, May 25, 2016 04:12 - CONCLUSION: Large evolving brainstem hemorrhage with obstruction of the fourth ventricle. Ventricular size has increased from previous study. Mike Glasgow MD Chest X-Ray 05/25/16 0000 Signed Impressions: Service Date/Time: Wednesday, May 25, 2016 04:33 - CONCLUSION: Lungs are clear. Mike Glasgow MD Renal Ultrasound 05/24/16 0000 Signed Impressions: Service Date/Time: Tuesday, May 24, 2016 09:29 - CONCLUSION: Negative for mass or hydronephrosis. Diaz Quigley MD FACR Head CTA 05/24/16 0000 Signed Impressions: Service Date/Time: Tuesday, May 24, 2016 01:39 - CONCLUSION: Normal CTA of the [place]. Luis A Glasgow MD Objective Remarks GENERAL: 51-year-old male, well nourished and well-developed currently orotracheally intubated. SKIN: Warm and dry. No rash HEAD: . Normocephalic. EYES: Pupils are around 2-3 mm bilaterally and reactive. No scleral icterus. ENT: No nasal bleeding or discharge. Mucous membranes pink and moist. NG tube in left nares NECK: Trachea midline. No thyromegaly or lymphadenopathy. Left IJ clean dry and intact CARDIOVASCULAR: RRR. S1, S2. No S4. Without murmur, clicks, gallops or rubs RESPIRATORY: Diminished breath sounds throughout all lung [place]. Few crackles appreciated right greater than left lower lobe GASTROINTESTINAL: Abdomen soft, non-tender, nondistended. Hypoactive bowel sounds : Archuleta in place. No scrotal edema MUSCULOSKELETAL: Extremities without significant peripheral edema. No obvious deformities. NEUROLOGICAL: No gaze deviation. Corneal reflexes are intact. Positive gag. . Extensor in bilateral lower extremities. No response to Babinski upward or downward. Date of Insertion: May 24, 2016 Line: Central Venous Catheter Side: Left Location: Internal, Jugular A/P Problem List: (1) Acute respiratory failure with hypoxia and hypercarbia ICD Code: J96.01 Status: Acute (2) Nontraumatic brainstem hemorrhage ICD Code: I61.3 Status: Acute (3) Poorly controlled blood pressure ICD Code: I99.8 Status: Chronic (4) Lactic acidemia ICD Code: E87.2 Status: Acute (5) CKD (chronic kidney disease) stage 3, GFR 30-59 ml/min ICD Code: N18.3 Status: Chronic (6) Tobacco abuse ICD Code: Z72.0 Status: Chronic (7) Aspiration pneumonia ICD Code: J69.0 Status: Acute (8) Marijuana abuse ICD Code: F12.10 Status: Chronic (9) Hyperglycemia ICD Code: R73.9 Status: Acute (10) Malignant hypertension ICD Code: I10 Status: Acute (11) Reactive airway disease ICD Code: J45.909 Status: Chronic Assessment and Plan NEURO/Psych: Acute brainstem hemorrhage (ruiz and mesencephalon 3.5 cm) likely hypertensive I had a long telephone discussion with patient's sister who contacted all reactives and they understand extremely poor neurological outcome. They all agreed with no escalation of care, no resuscitation and comfort care only. Two sisters are working on arrangement to come and be present when the ventilator support should be discontinued. At a mean time we will continue current medical management as bellow: Continuing ventilatory support until family presents for comfort care only Ventriculostomy and other invasive measures will be held in accordance with the family wishes. Patient with a terminal condition and no meaningful recovery Continue propofol at 35 mcg/kg per minute/fentanyl 100 g an hour drips for sedation/analgesia for comfort while intubated No sedation vacation Keppra 500 mg IV q12 hours for seizure prophylaxis 7 days Acetaminophen/cooling blanket as needed for temp >100.4 Acute respiratory failure - multifactorial secondary to Reactive airway disease Aspiration pneumonia Tobaccoism PRVC 18/compatible around 550/inspiratory time 1/40 Ventilator bundle. DuoNeb every 6 hours. Albuterol every 2 hours PRN for wheezing Malignant hypertension Continue Nicardipine gtt SBP goal close to 160 Chronic kidney disease stage III - resolved Continue Archuleta in place. Monitor intake and output. Monitor electrolytes and replace clinically as indicated. Aspiration pneumonia - resolved Received Cefepime and azithromycin in the ED. HEME: Normocytic anemia Thrombocytopenia Monitor CBC follow trends. ENDO: Acute hyperglycemia without known history of diabetes. likely stress reaction Low-dose insulin sliding scale at bedside glucose every 6 hours Access - Left IJ CVL day #5 Prophylaxis - GI -Protonix - DVT - SCD/pharmacological prophylaxis contraindicated status post intracerebral hemorrhage Level 1 Problem Qualifiers (1) Aspiration pneumonia: Qualified Code: J69.0 - Aspiration pneumonia, unspecified aspiration pneumonia type, unspecified laterality, unspecified part of lung (2) Reactive airway disease: Qualified Code: J45.909 - Reactive airway disease, unspecified asthma severity , uncomplicated David Kamara MD May 30, 2016 10:34
[2016-05-30 10:37] LABS: HEMOGLOBIN A1b 1.3 %; HEMOGLOBIN Ao 86.5 %; HEMOGLOBIN LA1C 1.8 %; HEMOGLOBIN P3 3.8 %
[2016-05-30] MEDS ORDERED: HEPARIN SODIUM - SQ 10,000 UNITS/ML VIAL OTHER ONE (13:00)
[2016-05-30 13:09] LABS: BACTERIA, URINE RARE /hpf; BLOOD, URINE SMALL (NEG); GLUCOSE,URINE NEG (NEG); KETONE, URINE 80 mg/dL (NEG); MUCUS URINE FEW /lpf (OCC); NITRITE,URINE NEG (NEG); PH, URINE 5.5 (5.0-8.5); URINE COLOR YELLOW (YELLW/STRAW)
[2016-05-30 13:22] LABS: BICARBONATE 14.9 MEQ/L (21.0-32.0); INDIRECT BILIRUBIN 0.3 MG/DL (0.0-0.8); POTASSIUM 3.7 MEQ/L (3.5-5.1); TOTAL BILIRUBIN ADULT 0.8 MG/DL (0.2-1.0)
[2016-05-30] MEDS ORDERED: MORPHINE SULFATE 8 MG/ML INJ IV PUSH ONE ×2 (18:00→20:30)
[2016-05-30] MEDS ORDERED: LORazepam 2 MG/ML VIAL IV PUSH ONE ×2 (18:00→20:30)
[2016-05-30] MEDS ORDERED: HYOSCYAMINE 0.5 MG/ML AMP IVP ONE ×2 (18:00→20:30)
[2016-05-30] MEDS ORDERED: LORazepam 2 MG/ML VIAL IV PUSH PRN (18:00)
[2016-05-30] MEDS ORDERED: MORPHINE SULFATE 4 MG/ML INJ IV PUSH PRN (18:00)
[2016-05-30 18:37] LABS: BACTERIA, URINE RARE /hpf; BLOOD, URINE SMALL (NEG); COMMENT (UR) CULT NOT INDICATED; CULTURE IF INDICATED CULT NOT INDICATED; GLUCOSE,URINE NEG (NEG); HYALINE CAST, URINE 1 /lpf (RARE); KETONE, URINE 10 mg/dL (NEG); MUCUS URINE FEW /lpf (OCC); NITRITE,URINE NEG (NEG); SQUAMOUS EPITHELIAL CELL URINE <1 /hpf (0-5); URINE COLOR LIGHT-YELLOW (YELLW/STRAW)
[2016-06-02] MEDS ORDERED: REMOVE OLD PATCH T-DERMAL SCH (15:00)
--- NOTE | 2016-06-13 00:33 | HHI.DS ---
Discharge Summary Admission Date May 24, 2016 at 01:06 Discharge Date: Jun 05, 2016 Admitting Diagnosis intracranial bleed (1) Respiratory failure (2) Hypertensive emergency (3) Intraparenchymal hematoma of brain Brief History 51 yo WM with PMH of poorly controlled HTN, CKD stage III, reactive airway disease, tobacco abuse who [place] [facility] [place] [facility] after he was found unresponsive in his bedroom. He and his 2 year old son were in a room with the door locked and the 2 year old began crying and there was no response from patient, so the patient's roommate called the landlord to unlock the door. Upon entry, the roommate found him face down, unresponsive, with gurgling respirations. When [facility] arrived he was intubated at the scene following administration of Ativan 4 mg IV and etomidate 40 mg IV. His pupils were pinpoint and he had marijuana and associated paraphernalia in the room so overdose with contemplated and he was given Narcan 0.8 mg IV without response. Workup in the ED demonstrated large 3.5 cm hemorrhage of ruiz and midbrain with effacement of the 4th ventricle. Neurosurgery was consulted, Dr. Potter, who indicated that this was a devastating hemorrhage with poor prognosis, not amenable to intervention. He is hypertensive with BP 176/86 and has been started on cardene. Coags are normal. Likely represents hypertensive bleed as patient previously had blood pressure 230/143 during a prior ED visit in January 2016. He was supposed to be on HCTZ and lisinopril. PE at Discharge GENERAL: comatose, critically ill SKIN: Warm and dry. HEAD: Normocephalic. EYES: No scleral icterus. No injection or drainage. NECK: Supple, trachea midline. No JVD or lymphadenopathy. CARDIOVASCULAR: Regular rate and rhythm without murmurs, gallops, or rubs. RESPIRATORY: Breath sounds equal bilaterally. No accessory muscle use. GASTROINTESTINAL: Abdomen soft, non-tender, nondistended. MUSCULOSKELETAL: No cyanosis, or edema. BACK: Nontender without obvious deformity. No CVA tenderness. Hospital Course I had a long telephone discussion with patient's sister who contacted all reactives and they understand extremely poor neurological outcome. They all agreed with no escalation of care, no resuscitation and comfort care only. Two sisters are working on arrangement to come and be present when the ventilator support should be discontinued. Pt Condition on Discharge: Fair Discharge Disposition: Hospice/Med Facility Discharge Instructions DIET: Follow Instructions for: As Tolerated, No Restrictions Activities you can perform: Regular-No Restrictions David Kamara MD Jun 13, 2016 00:33
--- NOTE | 2016-10-28 23:59 | HHI.DS ---
Summary Note Date of : May 30, 2016 Time Of : 21:41 Admission Date May 24, 2016 at 01:06 Admitting Diagnosis Brainstem hemorrhagic infarct Diagnosis at Time of : (1) Respiratory failure ICD Code: J96.90 (2) Hypertensive emergency ICD Code: I16.1 (3) Intraparenchymal hematoma of brain ICD Code: S06.360A (4) Respiratory failure, acute ICD Code: J96.00 (5) Malignant hypertension ICD Code: I10 Brief History 51 yo WM with PMH of poorly controlled HTN, CKD stage III, reactive airway disease, tobacco abuse who [place] [facility] [place] [facility] after he was found unresponsive in his bedroom. He and his 2 year old son were in a room with the door locked and the 2 year old began crying and there was no response from patient, so the patient's roommate called the landlord to unlock the door. Upon entry, the roommate found him face down, unresponsive, with gurgling respirations. When [facility] arrived he was intubated at the scene following administration of Ativan 4 mg IV and etomidate 40 mg IV. His pupils were pinpoint and he had marijuana and associated paraphernalia in the room so overdose with contemplated and he was given Narcan 0.8 mg IV without response. Workup in the ED demonstrated large 3.5 cm hemorrhage of ruiz and midbrain with effacement of the 4th ventricle. Neurosurgery was consulted, Dr. Potter, who indicated that this was a devastating hemorrhage with poor prognosis, not amenable to intervention. He is hypertensive with BP 176/86 and has been started on cardene. Coags are normal. Likely represents hypertensive bleed as patient previously had blood pressure 230/143 during a prior ED visit in January 2016. He was supposed to be on HCTZ and lisinopril. Imaging Last Impressions Head CT 05/25/16 0600 Signed Impressions: Service Date/Time: Wednesday, May 25, 2016 04:12 - CONCLUSION: Large evolving brainstem hemorrhage with obstruction of the fourth ventricle. Ventricular size has increased from previous study. Mike Glasgow MD Chest X-Ray 05/25/16 0000 Signed Impressions: Service Date/Time: Wednesday, May 25, 2016 04:33 - CONCLUSION: Lungs are clear. Mike Glasgow MD Renal Ultrasound 05/24/16 0000 Signed Impressions: Service Date/Time: Tuesday, May 24, 2016 09:29 - CONCLUSION: Negative for mass or hydronephrosis. Diaz Quigley MD FACR Head CTA 05/24/16 0000 Signed Impressions: Service Date/Time: Tuesday, May 24, 2016 01:39 - CONCLUSION: Normal CTA of the [place]. Luis A Glasgow MD Hospital Course 51 yo WM with PMH of poorly controlled HTN, CKD stage III, reactive airway disease, tobacco abuse who presents [place] [facility] [place] [facility] after he was found unresponsive in his bedroom. He and his 2 year old son were in a room with the door locked and the 2 year old began crying and there was no response from patient, so the patient's roommate called the landlord to unlock the door. Upon entry, the roommate found him face down, unresponsive, with gurgling respirations. When [facility] arrived he was intubated at the scene following administration of Ativan 4 mg IV and etomidate 40 mg IV. His pupils were pinpoint and he had marijuana and associated paraphernalia in the room so overdose with contemplated and he was given Narcan 0.8 mg IV without response. Workup in the ED demonstrated large 3.5 cm hemorrhage of ruiz and midbrain with effacement of the 4th ventricle. Neurosurgery was consulted, Dr. Potter, who indicated that this was a devastating hemorrhage with poor prognosis, not amenable to intervention. He is hypertensive with BP 176/86 and has been started on cardene. Coags are normal. Likely represents hypertensive bleed as patient previously had blood pressure 230/143 during a prior ED visit in January 2016. He was supposed to be on HCTZ and lisinopril. 05/24: CURRENT TEMPERATURE 105.7. 600 cc urine past hour. Awaiting urine and serum studies. Pupils are slowly reactive now about 3 mm bilaterally. Subjective 05/25: Afebrile. Adequate urine output. Pupils are about 2 mm bilaterally and minimally reactive. Withdraws to bilateral lower extremities. 05/30 this unfortunate gentleman remained comatose due to underlying catastrophic brain bleed. His clinical condition didn't change.I had a long telephone discussion with patient's sister who contacted all reactives and they understand extremely poor neurological outcome. They all agreed with no escalation of care, no resuscitation and comfort care only. Two sisters are working on arrangement to come and be present when the ventilator support should be discontinued. With a focus on comfort care measures and after withdrawing cough life support the patient has May 30, 2016 and 1:41 PM David Kamara MD Oct 28, 2016 23:59
== END 2016-05-30 21:41 | disposition expired | DRG 64 ==
LOC: NEPC 23:32 → NEDA 05-24 01:06 → NEDH 05-24 05:13 → N03B 05-24 05:53
PROVIDERS: ADMIT Emergency Medicine; ATTEND Emergency Medicine
PROC: 5A1955Z Respiratory Ventilation, Greater than 96 Consecutive Hours (ICD-10-PCS; principal; 2016-05-24)
PROC: 02HV33Z Insertion of Infusion Device into Superior Vena Cava, Percutaneous Approach (ICD-10-PCS; 2016-05-24)
PROC: B544ZZA Ultrasonography of Left Jugular Veins, Guidance (ICD-10-PCS; 2016-05-24)
PROC: 03HY32Z Insertion of Monitoring Device into Upper Artery, Percutaneous Approach (ICD-10-PCS; 2016-05-30)
DX: I61.3 Nontraumatic intracerebral hemorrhage in brain stem (principal); J96.01 Acute respiratory failure with hypoxia; J69.0 Pneumonitis due to inhalation of food and vomit; G93.40 Encephalopathy, unspecified; J96.02 Acute respiratory failure with hypercapnia; E87.2 Acidosis; D69.6 Thrombocytopenia, unspecified; N18.3 Chronic kidney disease, stage 3 (moderate); E83.42 Hypomagnesemia; I16.1 Hypertensive emergency; R00.1 Bradycardia, unspecified; I12.9 Hypertensive chronic kidney disease with stage 1 through stage 4 chronic kidney disease, or unspecified chronic kidney disease; R40.2440 Other coma, without documented Glasgow coma scale score, or with partial score reported, unspecified time; J45.909 Unspecified asthma, uncomplicated; R73.9 Hyperglycemia, unspecified; J44.9 Chronic obstructive pulmonary disease, unspecified; K58.9 Irritable bowel syndrome, unspecified; E83.39 Other disorders of phosphorus metabolism; E87.6 Hypokalemia; D64.9 Anemia, unspecified; F12.10 Cannabis abuse, uncomplicated; F17.210 Nicotine dependence, cigarettes, uncomplicated; Z82.3 Family history of stroke; Z66 Do not resuscitate; Z51.5 Encounter for palliative care
CPT/HCPCS: 36556; 36600; 36620; 70450; 70496; 70548; 71010; 76775; 76937; 80048; 80053; 80061; 80074; 80076; 80307; 80320; 80329; 81001; 81003; 82140; 82150; 82550; 82552; 82570; 82805; 82948; 82977; 83036; 83605; 83690; 83735; 83880; 83930; 83935; 84100; 84132; 84155; 84295; 84300; 84439; 84443; 84484; 85025; 85384; 85610; 85730; 87040; 87070; 87086; 87205; 87641; 93005; 93306; 94002; 94003; 94640; 94664; 94770; 95819; A9579; C9113; G0480; J0131; J0295; J0360; J0456; J0690; J0692; J1265; J1644; J1953; J1980; J2060; J2270; J2405; J2597; J3010; J3230; J3411; J3475; J3480; J7030; J7050; J7120; Q9967